=== PATIENT | female | born 1965 | race Caucasian/White ===

== ENCOUNTER 2020-06-13 17:14 | Emergency (ER) | payer OTHER, SELFPAY ==
--- NOTE | 2020-06-13 | XR_ITS ---
EXAMINATION: XR SHOULDER, RIGHT CLINICAL INFORMATION: Pain after fall COMPARISON: None TECHNIQUE: Three views of the right shoulder. FINDINGS: There is a comminuted right humeral head fracture. There is an avulsed fracture fragment including the greater tuberosity as well as a transverse component across the neck of the humerus. No dislocation seen. Mild acromioclavicular joint arthrosis. There is inferior spurring of the glenoid. Visualized right lung and ribs are normal. XR/XR shoulder RT min 2V IMPRESSION: Acute comminuted right humeral head fracture.
[2020-06-13 17:20] VITALS: BP 121/76; PULSE 87; RESP 18; TEMP 36.7; O2SAT 96; BMI 25.3
--- NOTE | 2020-06-13 17:39 | ED_ITS ---
HPI - Extremity Problem General Chief complaint: Extremity Injury, Upper Stated complaint: shoulder injury Time Seen by Provider: 06/13/20 17:31 Source: patient Mode of arrival: ambulatory Limitations: no limitations History of Present Illness HPI Narrative: Patient comes to the emergency room complaining of right shoulder pain. Patient states prior to arrival, patient was outside her home cleaning, patient slipped on ice, landed on her right shoulder. Patient denies hitting her head, no loss of consciousness. Patient denies pain in her elbow or wrist. Patient denies being on blood thinners. Related Data Previous Rx's Medication Instructions Recorded oxycodone-acetaminophen [Percocet] 1 tab PO Q4H PRN #14 tab 06/13/20 oxycodone-acetaminophen [Percocet] 1 tab PO Q6H PRN #14 tab 06/13/20 oxycodone-acetaminophen [Percocet] 1 tab PO Q6H PRN #14 tab 06/13/20 oxycodone-acetaminophen [Percocet] 1 tab PO Q6H PRN #14 tab 06/13/20 Allergies Allergy/AdvReac Type Severity Reaction Status Date / Time penicillin V Allergy Unknown hives Verified 11/06/19 00:00 Review of Systems Review of Systems: Constitutional : No Weight loss, No Fever, No Chills, No Night Sweats, No Fatigue, No Malaise ENT/Mouth : No Hearing loss, No Ear Pain, No Nasal Congestion, No Sinus Pain, No Hoarseness, No sore throat, No Rhinorrhea, No Swallowing Difficulty Eyes: No Eye Pain, No Swelling, No Redness, No Foreign Body, No Discharge, No Vision Changes Cardiovascular : No Chest Pain, No SOB, No Dyspnea on Exertion, No Orthopnea, No Edema, No Palpitations Respiratory : No Cough, No Sputum, No Wheezing, No Smoke Exposure, No Dyspnea Gastrointestinal : No Nausea, No Vomiting, No Diarrhea, No Constipation, No abdominal Pain, No Hematochezia, No Melena Genitourinary : no irregular bleeding, No Dysuria, No Urinary Frequency, No Hematuria, No Urinary Incontinence, No Urgency, No Flank Pain, No Urinary Flow Changes, No Hesitancy Musculoskeletal : Complaining of right shoulder pain, No Joint Swelling Skin : No Skin Lesions, No rash Neuro : No Weakness, No Numbness, No Paresthesias, No Loss of Consciousness, No Dizziness, No Headache Psych : No Anxiety/Panic, No Depression, No SI/HI/AH/VH, No Social Issues, Heme/Lymph: No Bruising, No Bleeding,No Lymphadenopathy Endocrine : No Polyuria, No Polydipsia, No Temperature Intolerance [facility] Past Medical History Medical History (Updated 06/13/20 @ 18:24 by Vi Andino MD) High cholesterol HTN (hypertension) Social History Social History Smoked in Last 30 Days: No Use of substances other than those prescribed or required for medical reasons: No Advance Directives: No Advance Directives Information Provided: Yes Physical Exam Vital Signs: Vital Signs: Last Vital Signs Temp 98.0 F 06/13/20 17: Pulse 87 06/13/20 17:20 Resp 18 06/13/20 17:20 BP 121/76 06/13/20 17:20 Pulse Ox 96 06/13/20 17:20 Body Mass Index 25.3 Appearance: Alert. Oriented X3. No acute distress. Eyes: Pupils equal, round and reactive to light. ENT: Pharynx normal. Neck: Normal inspection. Neck supple. No lymph nodes noted. No crepitus CVS: Normal heart rate and rhythm. Pulses normal. Normal S1 and S2 Respiratory: No respiratory distress. Breath sounds normal. No Wheezing. No rales Abdomen: Soft and nontender. No rigidity. No distention. good BS x4 Skin: Skin warm and dry. Normal skin color. Normal skin turgor. Extremities: No Lacerations. No Rash. Pain to palpation on the anterior aspect of the right shoulder. Patient unwilling to try moving her arm due to pain. Patient has her arm in a sling. No gross deformity, no lacerations, no erythema. Patient able to flex and extend elbow and wrist, no clavicular pain, no rib pain. Sensation throughout the arm is intact, patient is able to work on a close her hand with no difficulty Neuro: Oriented X 3. No motor deficit. No sensory deficit. Moving all extermi ties. No slurred speech. Course Course Course Narrative: I discussed the patient's x-rays with Dr. Reyes, at this time will provide the patient with pain medication and a sling. The patient has been instructed to follow up with Dr. Reyes on Monday. Of note, there are multiple Percocet prescriptions in the system, patient kept changing her mind to which pharmacy she wanted her medication to be sent to. After changing her mind multiple times, I called both pharmacies, to cancel the prescription, prescription was printed for the patient and she will be taking it to the pharmacy of her choice MDM - Extremity (Nontraumatic) Imaging Data Shoulder x-ray: Radiologist's impression: There is a comminuted right humeral head fracture. There is an avulsed fracture fragment including the greater tuberosity as well as a transverse component across the neck of the humerus. No dislocation seen. Mild acromioclavicular joint arthrosis. There is inferior spurring of the glenoid. Visualized right lung and ribs are normal. XR/XR shoulder RT min 2V IMPRESSION: Acute comminuted right humeral head fracture. Discharge Plan Discharge Clinical Impression: Fracture of humeral head, closed Qualifiers: Encounter type: initial encounter Laterality: right Qualified Code(s): S42.291A - Other displaced fracture of upper end of right humerus, initial encounter for closed fracture Patient Disposition: Home, Self-Care Instructions: Arm Fracture in Adults (ED) Additional Instructions: On Monday, please call Dr. Reyes office to schedule an appointment. Please follow-up with your primary care physician tomorrow. If you have any worsening or new symptoms, please return to the emergency room or call 911 Prescriptions: New oxycodone-acetaminophen [Percocet] 5-325 mg tablet 1 tab PO Q4H PRN (Reason: pain) Qty: 14 RF: 0 oxycodone-acetaminophen [Percocet] 5-325 mg tablet 1 tab PO Q6H PRN (Reason: pain) Qty: 14 RF: 0 oxycodone-acetaminophen [Percocet] 5-325 mg tablet 1 tab PO Q6H PRN (Reason: pain) Qty: 14 RF: 0 oxycodone-acetaminophen [Percocet] 5-325 mg tablet 1 tab PO Q6H PRN (Reason: pain) Qty: 14 RF: 0 Interventions: ED Discharge Assessment Last Done: 06/13/20 18:58 Discharge Date/Time: 06/13/20 19:12
[2020-06-13] MEDS: Acetaminophen 325 MG TABLET 650 MG PO (17:45)
[2020-06-13] MEDS: Ketorolac Tromethamine 60 MG/2 ML VIAL IM (18:42)
== END 2020-06-13 19:12 | disposition home or self-care (01) ==
PROVIDERS: Emergency Provider Emergency Medicine; PCP Internal Medicine
DX: S42.291A Other displaced fracture of upper end of right humerus, initial encounter for closed fracture (principal); M25.511 Pain in right shoulder; I10 Essential (primary) hypertension; W00.0XXA Fall on same level due to ice and snow, initial encounter; Y93.H1 Activity, digging, shoveling and raking; Y92.009 Unspecified place in unspecified non-institutional (private) residence as the place of occurrence of the external cause; Y99.9 Unspecified external cause status; Z79.899 Other long term (current) drug therapy
CPT/HCPCS: 73030; 96372; 99284; J1885

== ENCOUNTER → 2020-06-15 12:40 | Outpatient (BNVA) | payer OTHER, SELFPAY | PROVIDERS: Visit Provider Physician Assistant | DX: S42.251A Displaced fracture of greater tuberosity of right humerus, initial encounter for closed fracture (principal) | CPT/HCPCS: 99202 ==

== ENCOUNTER 2020-06-22 08:50 | Outpatient (REF) | payer OTHER, SELFPAY | END 2020-06-22 08:51 | disposition home or self-care (01) | LOC: HO.HOSX 08:50 | PROVIDERS: Visit Provider Orthopaedic Surgery | DX: Z13.89 Encounter for screening for other disorder (principal) ==

== ENCOUNTER 2020-06-22 10:49 | Outpatient (REF) | payer OTHER, SELFPAY ==
--- NOTE | 2020-06-22 10:56 | XR_ITS ---
EXAMINATION: XR SHOULDER, RIGHT CLINICAL INFORMATION: Comminuted fracture right humeral head. Follow-up COMPARISON: Radiographs right shoulder 06/13/2020 TECHNIQUE: Right shoulder is imaged in 3 views. FINDINGS: Comminuted fracture right humeral head again seen with faint nondisplaced transverse component and comminuted fracture base greater tuberosity. There is less distraction of the greater tuberosity on current study. The acromioclavicular alignment is normal. There is no dislocation or destructive process. XR/XR shoulder RT min 2V IMPRESSION: Comminuted fracture again noted humeral head. There is improved alignment of the greater tuberosity component.
== END 2020-06-22 10:50 | disposition home or self-care (01) ==
LOC: HO.XRAY 10:49
PROVIDERS: PCP Internal Medicine; Visit Provider Orthopaedic Surgery
DX: M25.511 Pain in right shoulder (principal)
CPT/HCPCS: 73030; 99212

== ENCOUNTER 2020-07-09 08:54 | Outpatient (REF) | payer OTHER, SELFPAY | END 2020-07-09 08:55 | disposition home or self-care (01) | LOC: HO.HOSX 08:54 | PROVIDERS: Visit Provider Orthopaedic Surgery | DX: Z13.89 Encounter for screening for other disorder (principal) ==

== ENCOUNTER 2020-07-16 09:25 | Outpatient (REF) | payer OTHER, SELFPAY | END 2020-07-16 09:26 | disposition home or self-care (01) | LOC: HO.HOSX 09:25 | PROVIDERS: Visit Provider Orthopaedic Surgery | DX: Z13.89 Encounter for screening for other disorder (principal) ==

== ENCOUNTER 2020-08-13 08:02 | Outpatient (REF) | payer OTHER, SELFPAY ==
--- NOTE | ~2020-08-13 | XR_ITS ---
EXAMINATION: XR SHOULDER, RIGHT CLINICAL INFORMATION: Right humeral head fracture, follow-up. COMPARISON: 06/22/2020 and 06/13/2020 right shoulder radiographs TECHNIQUE: Three views of the right shoulder. FINDINGS: Again seen is deformity in the right greater tuberosity. There has been interval superomedial displacement of the lateral fragment now positioned in the humeral acromial interval. The right humeral surgical neck fracture shows evidence for interval healing with decreased fracture line lucency and increased sclerosis. Mild right acromioclavicular degenerative joint changes are seen. The right glenohumeral joint is intact. The soft tissues are unremarkable. XR/XR shoulder RT min 2V IMPRESSION: Interval superomedial displacement of a fragment of the greater tuberosity now positioned in the humeral acromial interval. This is new since the previous study, but is of indeterminate age. Acute injury cannot be excluded. Other previously seen fracture fragments show evidence for interval healing.
== END 2020-08-13 08:03 | disposition home or self-care (01) ==
LOC: HO.HOSX 08:02
PROVIDERS: Visit Provider Orthopaedic Surgery
DX: S42.251D Displaced fracture of greater tuberosity of right humerus, subsequent encounter for fracture with routine healing (principal)
CPT/HCPCS: 73030; 99212

== ENCOUNTER → 2020-09-14 10:02 | Outpatient (BNVA) | payer OTHER, SELFPAY | PROVIDERS: PCP Internal Medicine; Referring Provider Internal Medicine; Visit Provider Internal Medicine Endocrinology, Diabetes & Metabolism | DX: Z13.89 Encounter for screening for other disorder (principal) | CPT/HCPCS: Q3014 ==

== ENCOUNTER 2020-10-15 10:08 | Outpatient (REF) | payer OTHER, SELFPAY ==
--- NOTE | 2020-10-15 10:49 | PM.OP ---
Brief Operative Note Date of Service: 10/15/20 Pre-op diagnosis: NONTOXIC MULTINODULAR GOITER Post-op diagnosis: same Procedure: This procedure was explained to the patient. Alternatives, risks and benefits were discussed. Written consent was obtained. After sterile preparation of the skin, fine-needle aspiration biopsy of Left lower pole thyroid nodule size 2.7 x 2.3 x 2.3 cm was performed under direct ultrasound guidance to confirm accurate needle placement. Three passes were performed with 27 gauge needles. Sample was submitted to cytology, initial cytology reading was adequate. Two passes were dedicated for [employer] genomic sequencing english and reading instructor test. A second fine-needle aspiration biopsy of Right mid pole thyroid nodule size 1.6 x 0.9 x 1.5 cm was performed under direct ultrasound guidance to confirm accurate needle placement. Four passes were performed with 27 gauge needles. Sample was submitted to cytology, initial cytology reading was adequate. Two passes were dedicated for [employer] genomic sequencing english and reading instructor test. Patient tolerated procedure well. Aftercare instructions were provided. Impression: uncomplicated fine-needle aspiration biopsy of left lower pole in right mid pole thyroid nodules under direct ultrasound guidance. Surgeon: Piyush Lawrence MD Anesthesia: local (Lidocaine 1 %, 2 ml) Estimated blood loss (mL): 0 Condition: stable Disposition: same day
[2020-10-15] MEDS: Lidocaine HCl 1 % 20 ML VIAL 5 ML SUBCUT (11:15)
== END 2020-10-15 10:09 | disposition home or self-care (01) ==
LOC: HO.US 10:08
PROVIDERS: Visit Provider Internal Medicine Endocrinology, Diabetes & Metabolism
DX: E04.2 Nontoxic multinodular goiter (principal)
CPT/HCPCS: 10005; 10006; 88172; 88173; 88305

== ENCOUNTER → 2020-10-28 08:13 | Outpatient (BNVA) | payer OTHER, SELFPAY | PROVIDERS: PCP Internal Medicine; Visit Provider Internal Medicine Endocrinology, Diabetes & Metabolism | CPT/HCPCS: Q3014 ==

== ENCOUNTER 2020-12-03 15:50 | Emergency (ER) | payer OTHER, SELFPAY ==
[2020-12-03 16:46] VITALS: BP 120/76; PULSE 93; RESP 18; TEMP 36.6; O2SAT 97; BMI 25.7
[2020-12-03 19:09] VITALS: BP 122/82; PULSE 84; RESP 18; O2SAT 94
[2020-12-03 19:24] LABS: MANUAL DIFF FLAG NO
[2020-12-03 19:31] LABS: Basophils Percent Auto 0.4 % (0-2); Eosinophils Percent Auto 0.1 % (0-4); Hematocrit 45.2 % (37-47); Hemoglobin 15.3 g/dl (12.0-16.0); Imm Gran Abs Auto 0.02 X10*3/uL (0.00-0.03); Imm Gran Pct Auto 0.2 % (0.0-0.4); Lymphocytes Absolute Auto 1.9 X10*3/uL (1.2-4.9); Mean Corpuscular HGB Conc 33.8 g/dl (31.0-35.0); Mean Corpuscular Hemoglobin 31.5 pg (27.0-33.0); Mean Platelet Volume 10.3 fL (9.4-12.3); Monocytes Absolute Auto 1.1 X10*3/uL (0.1-1.2); Monocytes Percent Auto 13.1 % (2-11); Neutrophils Absolute Auto 5.2 X10*3/uL (2.0-8.3); Neutrophils Percent Auto 63.2 % (45-73); Platelet Count 176 X10*3/uL (160-400); Red Blood Count 4.86 X10*6/uL (4.20-5.50); Red Cell Distribution Width 13.2 % (11.0-16.0); White Blood Count 8.3 X10*3/uL (4.8-10.8)
[2020-12-03 19:40] LABS: Ammonia 34 umol/L (13-55)
[2020-12-03 20:02] LABS: Alanine Aminotransferase 56 U/L (0-31); Albumin Level 4.3 g/dL (3.5-5.0); Alkaline Phosphatase 152 U/L (39-117); Anion Gap 17 (12-20); Aspartate Amino Transferase 150 U/L (5-31); Bilirubin Direct 0.6 mg/dL (0.0-0.5); Bilirubin Total 0.9 mg/dL (0.0-1.0); Calcium 9.9 mg/dL (8.4-10.2); Carbon Dioxide 29 mmol/L (22-29); Chloride 94 mmol/L (96-108); Creatinine Clr Calc Pharmacy 61.9; Estimated Glomerular Filt Rate > 60; Glucose Random 82 mg/dL (60-115); Potassium 4.4 mmol/L (3.3-5.1); Sodium 136 mmol/L (135-145); Total Protein 7.7 g/dL (6.5-8.0)
[2020-12-03 20:12] LABS: Blood Urea Nitrogen 14 mg/dL (9-16); Lipase 117 U/L (8-78)
--- NOTE | 2020-12-04 01:57 | ED.ALCOHOL ---
HPI - Alcohol General Chief Complaint: ETOH/Substance Use Stated Complaint: Alcohol poisoning Time Seen by Provider: 12/04/20 01:50 History of Present Illness HPI narrative: Patient is a 55-year-old female with a long history of alcohol and narcotic abuse. Baseline is on methadone. Patient due to a family illness has been using more alcohol than usual. Also started back using heroin after she was cut back on the methadone. Patient admits to using heroin today. Patient denies any chest pain. Feels very weak. Feels she wants detox. Patient is from home. Patient already spoken with substance abuse counselor while in the waiting room. She denies any chest pain palpitation. No coughing or congestion or upper respiratory symptoms. No dizziness. Positive decrease in hydration. Related Data Home Medications Medication Instructions Recorded Confirmed amlodipine 5 mg tablet 5 mg PO DAILY 09/14/20 10/28/20 atenolol 25 mg tablet 25 mg PO DAILY 09/14/20 10/28/20 cholecalciferol (vitamin D3) 50 50 mcg PO DAILY 09/14/20 10/28/20 mcg (2,000 unit) capsule clonazepam 1 mg tablet 1 mg PO DAILY tab 09/14/20 10/28/20 methocarbamol 750 mg tablet 750 mg PO TID 09/14/20 10/28/20 simvastatin 40 mg tablet 40 mg PO BEDTIME 09/14/20 10/28/20 Previous Rx's Medication Instructions Recorded ondansetron 4 mg PO TID PRN 5 Days #10 tab 12/04/20 Allergies Allergy/AdvReac Type Severity Reaction Status Date / Time penicillin V Allergy Unknown hives Verified 06/22/20 11:18 Review of Systems Review of Systems: Constitutional: No Weight loss, No Fever, No Chills, No Night Sweats, No Fatigue, No Malaise ENT/Mouth: No Hearing loss, No Ear Pain, No Nasal Congestion, No Sinus Pain, No Hoarseness, No sore throat, No Rhinorrhea, No Swallowing Difficulty Eyes: No Eye Pain, No Swelling, No Redness, No Foreign Body, No Discharge, No Vision Changes Cardiovascular: No Chest Pain, No SOB, No Dyspnea on Exertion, No Orthopnea, No Edema, No Palpitations Respiratory: No Cough, No Sputum, No Wheezing, No Smoke Exposure, No Dyspnea Gastrointestinal: No Nausea, No Vomiting, No Diarrhea, No Constipation, No abdominal Pain, No Hematochezia, No Melena Genitourinary: no irregular bleeding, No Dysuria, No Urinary Frequency, No Hematuria, No Urinary Incontinence, No Urgency, No Flank Pain, No Urinary Flow Changes, No Hesitancy Musculoskeletal: No joint pain, No Myalgias, No Joint Swelling Skin: No Skin Lesions, No rash Neuro: No Weakness, No Numbness, No Paresthesias, No Loss of Consciousness, No Dizziness, No Headache Psych: No Anxiety/Panic, No Depression, No SI/HI/AH/VH, No Social Issues, Heme/Lymph: No Bruising, No Bleeding,No Lymphadenopathy Endocrine: No Polyuria, No Polydipsia, No Temperature Intolerance [facility] Past Medical History Medical History High cholesterol History of ovarian cyst HTN (hypertension) Non-toxic multinodular goiter Social History Social History Alcohol intake: current Alcohol intake frequency: 3 or more drinks per day Alcohol type: hard liquor Patient Tobacco Use Status: Former Tobacco user Use of substances other than those prescribed or required for medical reasons: Yes Substance Use Type: Heroin Substance Use Frequency: Chronic Longstanding Last Used Substance: Just Prior to Admission Any prior treatment program specific to substance use: Yes Advance Directives: No Advance Directives Information Provided: No Patient : No Current occupational status: unemployed Current occupation: rt handed Physical Exam Vital Signs: Vital Signs: Last Vital Signs Temp 98 F 12/03/20 16:46 Pulse 84 12/03/20 19:09 Resp 18 12/03/20 19:09 BP 122/82 12/03/20 19:09 Pulse Ox 94 12/03/20 19:09 Body Mass Index 25.7 Appearance: Alert. Oriented X3. No acute distress. Eyes: Pupils equal, round and reactive to light. ENT: Pharynx normal. Neck: Normal inspection. Neck supple. No lymph nodes noted. No crepitus CVS: Normal heart rate and rhythm. Pulses normal. Normal S1 and S2 Respiratory: No respiratory distress. Breath sounds normal. No Wheezing. No rales Abdomen: Soft and nontender. No rigidity. No distention. good BS x4 Skin: Skin warm and dry. Normal skin color. Normal skin turgor. Extremities: No lower extremity edema. Neurovascular intact to all extremities. No Lacerations. No Rash Neuro: Oriented X 3. No motor deficit. No sensory deficit. Moving all extermities. No slurred speech MDM - Alcohol MDM Narrative Medical decision making narrative: Patient's EKG is consistent with long-term substance abuse. Patient's well-appearing otherwise. Tolerated p.o. in the emergency department. Spoken with substance abuse counseling. Patient appeared to want detox. Will follow through with plan. Will give patient Zofran for nausea. Will have patient closely follow up on an outpatient basis. In stable condition. Ammonia level is normal. There is no evidence for hepatic encephalopathy. Patient is completely awake alert answers questions appropriately. In stable condition with discharge home. Lab Data Attestation: I reviewed the patient's lab results. Result diagrams: 12/03/20 19:17 12/03/20 19:17 Labs: Lab Results 12/03/20 12/03/20 12/03/20 Range/Units 19:17 19:17 19:17 WBC 8.3 (4.8-10.8) X10*3/uL RBC 4.86 (4.20-5.50) X10*6/uL Hgb 15.3 (12.0-16.0) g/dl Hct 45.2 (37-47) % MCV 93.0 (80-98) fL MCH 31.5 (27.0-33.0) pg MCHC 33.8 (31.0-35.0) g/dl RDW 13.2 (11.0-16.0) % Plt Count 176 (160-400) X10*3/uL MPV 10.3 (9.4-12.3) fL Immature Gran % (Auto) 0.2 (0.0-0.4) % Neut % (Auto) 63.2 (45-73) % Lymph % (Auto) 23.0 (20-40) % [place] % (Auto) 13.1 H (2-11) % Eos % (Auto) 0.1 (0-4) % Baso % (Auto) 0.4 (0-2) % Lymph # (Auto) 1.9 (1.2-4.9) X10*3/uL [place] # (Auto) 1.1 (0.1-1.2) X10*3/uL Eos # (Auto) 0.0 (0.0-0.4) X10*3/uL Baso # (Auto) 0.0 (0.0-0.2) X10*3/uL Abs Immat Gran (auto) 0.02 (0.00-0.03) X10*3/uL Absolute Neuts (auto) 5.2 (2.0-8.3) X10*3/uL Absolute Nucleated RBC 0.000 (0.0-0.012) X10*3/uL Nucleated RBC % (auto) 0.0 (0.0-0.2) /100WBC Sodium 136 (135-145) mmol/L Potassium 4.4 (3.3-5.1) mmol/L Chloride 94 L (96-108) mmol/L Carbon Dioxide 29 (22-29) mmol/L Anion Gap 17 (12-20) BUN 14 (9-16) mg/dL Creatinine 0.95 (0.5-1.4) mg/dL Estim Creat Clear Calc 61.9 Estimated GFR > 60 Random Glucose 82 (60-115) mg/dL Calcium 9.9 (8.4-10.2) mg/dL Total Bilirubin 0.9 (0.0-1.0) mg/dL Direct Bilirubin 0.6 H (0.0-0.5) mg/dL AST 150 H (5-31) U/L ALT 56 H (0-31) U/L Alkaline Phosphatase 152 H (39-117) U/L Ammonia 34 (13-55) umol/L Total Protein 7.7 (6.5-8.0) g/dL Albumin 4.3 (3.5-5.0) g/dL Lipase 117 H (8-78) U/L Discharge Plan Discharge Clinical Impression: Alcoholic intoxication, Heroin abuse Patient Disposition: Home, Self-Care Instructions: Alcohol Intoxication (ED), Narcotic Use Disorder (ED) Prescriptions: New ondansetron 4 mg tablet,disintegrating 4 mg PO TID PRN (Reason: nausea and vomiting) 5 Days Qty: 10 RF: 0 No Action atenolol 25 mg tablet 25 mg PO DAILY RF: 0 cholecalciferol (vitamin D3) 50 mcg (2,000 unit) capsule 50 mcg PO DAILY RF: 0 amlodipine 5 mg tablet 5 mg PO DAILY RF: 0 simvastatin 40 mg tablet 40 mg PO BEDTIME RF: 0 clonazepam 1 mg tablet 1 mg PO DAILY RF: 0 methocarbamol 750 mg tablet 750 mg PO TID RF: 0 Referrals: Physician,Unknown [Primary Care Provider] - 2 days (Please go to detox as soon as possible. Zofran for nausea. Please stop drinking. Please stop using heroin. Both of these things can kill you.)
[2020-12-04 02:33] VITALS: BP 114/76; PULSE 81; RESP 16; TEMP 36.8; O2SAT 97
[2020-12-04 02:53] LABS: Ethanol 197 mg/dL
== END 2020-12-04 02:37 | disposition home or self-care (01) ==
PROVIDERS: Emergency Provider Emergency Medicine Emergency Medical Services
DX: F10.129 Alcohol abuse with intoxication, unspecified (principal); Y90.9 Presence of alcohol in blood, level not specified; F11.10 Opioid abuse, uncomplicated
CPT/HCPCS: 36415; 80053; 80076; 82077; 82140; 82248; 83690; 85025; 96360; 99283; 99284

== ENCOUNTER 2020-12-31 10:27 | Outpatient (REF) | payer OTHER, SELFPAY ==
--- NOTE | ~2020-12-31 | MM_ITS ---
EXAMINATION: MM SCREENING DIGITAL BREAST TOMOSYNTHESIS, BILATERAL CLINICAL INFORMATION: Screening. Asymptomatic. The lifetime risk of breast cancer based on the Tyrer-Cuzick Model is 9.1%. COMPARISON: Mammography: July 14, 2016 and studies dating back to May 13, 2010 TECHNIQUE: Digital breast tomosynthesis is performed in both the craniocaudal and mediolateral oblique views along with computer-aided detection (CAD). Synthesized 2D images are generated from the tomosynthesis. FINDINGS: The breasts are extremely dense, which lowers the sensitivity of mammography (ACR BI-RADS breast composition Category d). There are no significant masses, abnormal calcifications, or other abnormalities. MM/MM tomosynthesis screening BI IMPRESSION: There are no significant changes from prior study. ASSESSMENT: BI-RADS 1: Negative RECOMMENDATION: Routine annual mammography screening. This patient's information was entered into a reminder system with a target due date for their next mammogram.
== END 2020-12-31 10:28 | disposition home or self-care (01) ==
LOC: HO.MAMMO 10:27
PROVIDERS: Visit Provider Internal Medicine
DX: Z12.31 Encounter for screening mammogram for malignant neoplasm of breast (principal)
CPT/HCPCS: 77063; 77067

== ENCOUNTER 2021-01-11 11:56 | Outpatient (REF) | payer OTHER, SELFPAY ==
--- NOTE | ~2021-01-11 | XR_ITS ---
EXAMINATION: XR SHOULDER, RIGHT CLINICAL INFORMATION: Pain COMPARISON: Previous x-ray most recent July 2020 TECHNIQUE: Three views of the right shoulder. FINDINGS: There is an old healed fracture of the right greater tuberosity and humeral neck. No acute fracture or dislocation is seen. There is arthritis at the clavicular glenohumeral joints. Soft tissues are unremarkable. XR/XR shoulder RT min 2V IMPRESSION: Old healed fracture of the right tuberosity and humeral neck. Mild arthritis.
== END 2021-01-11 11:57 | disposition home or self-care (01) ==
LOC: HO.HOSX 11:56
PROVIDERS: PCP Internal Medicine; Visit Provider Orthopaedic Surgery
DX: S42.251D Displaced fracture of greater tuberosity of right humerus, subsequent encounter for fracture with routine healing (principal); M67.911 Unspecified disorder of synovium and tendon, right shoulder; F11.90 Opioid use, unspecified, uncomplicated; Z72.89 Other problems related to lifestyle; X58.XXXD Exposure to other specified factors, subsequent encounter
CPT/HCPCS: 73030; 99212

== ENCOUNTER 2021-10-20 12:54 | Outpatient (REF) | payer OTHER, SELFPAY ==
--- NOTE | ~2021-10-20 | MR_ITS ---
EXAMINATION: MR SHOULDER WITHOUT CONTRAST, RIGHT CLINICAL INFORMATION: Right shoulder pain. COMPARISON: Radiographs 01/11/2021. TECHNIQUE: MRI of the right shoulder without contrast was performed on a high-field scanner. FINDINGS: ROTATOR CUFF: The supraspinatus tendon is attenuated compatible with chronic partial tearing. No measurable defect. The infraspinatus tendon inserts onto a slightly retracted and healed fracture fragment of the greater tuberosity. Subscapularis insertional tendinosis. Mild infraspinatus muscle atrophy. BICEPS: Normal. CORACOACROMIAL ARCH: The undersurface of the acromion is curved with mild subacromial spurring anteriorly. Moderate acromioclavicular osteoarthritis. LABRUM/CAPSULE: The posterior labrum is likely chronically degenerated and torn. GLENOHUMERAL JOINT/MARROW: Remote, healed fracture of the humeral head. There is overriding of the posterior aspect of the greater tuberosity with the posterior humeral head, a portion of which is unfused, onto which the infraspinatus tendon inserts. No significant joint effusion. MR/MR shoulder RT wo con IMPRESSION: Remote, healed fracture of the humeral head with residual overriding of the posterior greater tuberosity, onto which the infraspinatus tendon inserts. The supraspinatus tendon is attenuated, without a measurable defect. Moderate acromioclavicular osteoarthritis. Small anterior subacromial spur. Mild glenohumeral osteoarthritis with probable chronic degenerative tearing and attenuation of the posterior labrum.
== END 2021-10-20 12:55 | disposition home or self-care (01) ==
LOC: HO.MRI 12:54
PROVIDERS: Visit Provider Orthopaedic Surgery
DX: M67.911 Unspecified disorder of synovium and tendon, right shoulder (principal)
CPT/HCPCS: 73221

== ENCOUNTER → 2021-12-20 12:41 | Outpatient (BNVA) | payer OTHER, SELFPAY | PROVIDERS: PCP Internal Medicine; Visit Provider Orthopaedic Surgery | DX: S42.251D Displaced fracture of greater tuberosity of right humerus, subsequent encounter for fracture with routine healing (principal) | CPT/HCPCS: 99212 ==

== ENCOUNTER 2022-01-12 16:10 | Outpatient (REF) | payer OTHER, SELFPAY ==
--- NOTE | ~2022-01-12 | US_ITS ---
EXAMINATION: US THYROID CLINICAL INFORMATION: Nontoxic multinodular goiter. COMPARISON: US thyroid 02/12/2020 and 01/19/2017. US-guided thyroid biopsy 10/15/2020. TECHNIQUE: Linear transducer grayscale and color Doppler examination with attention to the region of the thyroid. FINDINGS: SIZE: Measurements of the thyroid lobes and nodules are given in sagittal, anteroposterior and transverse dimensions respectively. Right Thyroid Lobe: 5.7 x 1.7 x 1.8 cm, volume 9.1 mL. Previously 5.2 x 1.7 x 2.0 cm, volume 9.2 mL. Parenchyma: The gland echotexture is heterogeneous. Thyroid vascularity is increased. Left Thyroid Lobe: 5.5 x 2.2 x 2.4 cm, volume 15.2 mL. Previously 5.0 x 1.8 x 2.7 cm, volume 12.7 mL. Parenchyma: The gland echotexture is heterogeneous. Thyroid vascularity is increased. Isthmus: 0.2 cm in maximum AP dimension. Previously 0.2 cm. Estimated total number of nodules greater than or equal to 1 cm: 5. [employer] Fl[employer] Attendant nodules are described as follows: 1. Location: Right mid. Size: 2.2 x 1.1 x 1.8 cm, volume 2.3 mL. Previously: 1.6 x 0.9 x 1.5 cm, volume 1.1 mL. Nodule characteristics: Composition: Solid/almost completely solid (2). Echogenicity: Cannot be determined (1). Shape: Not taller than wide (0). Margins: Smooth (0). Echogenic Foci: None (0). ACR TI-RADS total points: 3 ACR TI-RADS category: 3 Significant change in size (>/= 20% in 2 dimensions and minimal increase of 2 mm or 50% or greater increase in volume): Yes Change in features: No Change in ACR TI-RADS risk category: No 2. Location: Right mid. Size: 1.2 x 0.6 x 1.1 cm, volume 0.4 mL. Previously: 1.0 x 0.5 x 0.9 cm, volume 0.2 mL. Nodule characteristics: Composition: Solid/almost completely solid (2). Echogenicity: Hypoechoic (2). Shape: Not taller than wide (0). Margins: Smooth (0). Echogenic Foci: None (0). ACR TI-RADS total points: 4 ACR TI-RADS category: 4 Significant change in size (>/= 20% in 2 dimensions and minimal increase of 2 mm or 50% or greater increase in volume): Yes Change in features: No Change in ACR TI-RADS risk category: No 3. Location: Right inferior. Size: 1.5 x 1.0 x 1.1 cm, volume 0.9 mL. Previously: 1.2 x 1.0 x 1.2 cm, volume 0.8 mL. Nodule characteristics: Composition: Solid (2). Echogenicity: Hypoechoic (2). Shape: Not taller than wide (0). Margins: Ill-defined (0). Echogenic Foci: None (0). ACR TI-RADS total points: 4 ACR TI-RADS category: 4 Significant change in size (>/= 20% in 2 dimensions and minimal increase of 2 mm or 50% or greater increase in volume): No Change in features: No Change in ACR TI-RADS risk category: No 4. Location: Left medial. Size: 1.7 x 1.1 x 1.4 cm, volume 1.3 mL. Previously: 1.5 x 1.1 x 1.3 cm, volume 1.1 mL. Nodule characteristics: Composition: Solid (2). Echogenicity: Isoechoic (1). Shape: Not taller than wide (0). Margins: Smooth (0). Echogenic Foci: None (0). ACR TI-RADS total points: 3 ACR TI-RADS category: 3 Significant change in size (>/= 20% in 2 dimensions and minimal increase of 2 mm or 50% or greater increase in volume): No Change in features: No Change in ACR TI-RADS risk category: No 5. Location: Left mid. Size: 1.4 x 0.8 x 1.5 cm, volume 0.9 mL. Previously: Not documented on the previous study. Nodule characteristics: Composition: Mixed cystic and solid (1). Echogenicity: Hypoechoic (2). Shape: Not taller than wide (0). Margins: Ill-defined (0). Echogenic Foci: None (0). ACR TI-RADS total points: 3 ACR TI-RADS category: 3 NODES: No lymphadenopathy is seen in the tissue surrounding the thyroid gland. US/US thyroid IMPRESSION: 1. A 1.5 cm in maximal diameter right thyroid lower pole nodule meets ACR biopsy criteria and is amenable to ultrasound-guided biopsy, if clinically indicated and not already performed. Given the interim stability of this nodule, however, further ultrasound surveillance without biopsy at this time is a further reasonable management option. 2. There is an asymmetric goiter, left lobe greater than right. 3. There is increased thyroid vascularity, which can be associated with thyroiditis. ACR TI-RADS RECOMMENDATION REFERENCE: Ultrasound-guided fine-needle aspiration, followup ultrasound, no further follow up. * TR1 (0 point) and TR 2 (2 points): No FNA or follow up * TR3 (3 points): FNA if more than or equal to 2.5 cm in maximum dimension, followup ultrasound in 1, 3 and 5 years if 1.5 to 2.4 cm in maximum dimension. * TR4 (4-6 points): FNA if more than or equal to 1.5 cm in maximum dimension, followup ultrasound in 1, 2, 3 and 5 years if 1 to 1.4 cm in maximum dimension. * TR5 (more than or equal to 7 points): FNA if more than or equal to 1 cm in maximum dimension, followup ultrasound every year for 5 years if 0.5 to 0.9 cm in maximum dimension. * TR3, TR4 or TR5 nodules that are below the size threshold for follow up receive no follow up.
== END 2022-01-12 16:11 | disposition home or self-care (01) ==
LOC: HO.US 16:10
PROVIDERS: Visit Provider Internal Medicine Endocrinology, Diabetes & Metabolism
DX: E04.2 Nontoxic multinodular goiter (principal)
CPT/HCPCS: 76536

== ENCOUNTER 2022-04-16 12:07 | Emergency (ER) | payer OTHER, SELFPAY ==
--- NOTE | ~2022-04-16 | XR_ITS ---
EXAMINATION: RIGHT HAND, FOREARM, AND ELBOW. CLINICAL INFORMATION: Fall with pain COMPARISON: None TECHNIQUE: Three-view right elbow, AP and lateral right forearm, and 4 view right wrist. FINDINGS: Right elbow: There is no evidence of acute fracture or dislocation of the right elbow. No right elbow effusion is seen. There is medial and lateral calcific epicondylitis present. Joint spaces are maintained. Right wrist and forearm: There is a comminuted intra-articular fracture of the distal right radius. There appears to be neutral angulation of the radiocarpal joint. There is also some dorsal displacement of fracture fragments by up to 1.2 cm. There is medial displacement of a fracture fragment by approximately 7 mm. There is acquired positive ulnar variance. There is degenerative change of the first carpal metacarpal joint. There is associated soft tissue swelling. XR/XR hand wrist RT IMPRESSION: No acute elbow fracture or effusion identified. Comminuted intra-articular fracture with displaced fragments distal right radius as described.
--- NOTE | ~2022-04-16 | XR_ITS ---
EXAMINATION: RIGHT HAND, FOREARM, AND ELBOW. CLINICAL INFORMATION: Fall with pain COMPARISON: None TECHNIQUE: Three-view right elbow, AP and lateral right forearm, and 4 view right wrist. FINDINGS: Right elbow: There is no evidence of acute fracture or dislocation of the right elbow. No right elbow effusion is seen. There is medial and lateral calcific epicondylitis present. Joint spaces are maintained. Right wrist and forearm: There is a comminuted intra-articular fracture of the distal right radius. There appears to be neutral angulation of the radiocarpal joint. There is also some dorsal displacement of fracture fragments by up to 1.2 cm. There is medial displacement of a fracture fragment by approximately 7 mm. There is acquired positive ulnar variance. There is degenerative change of the first carpal metacarpal joint. There is associated soft tissue swelling. XR/XR elbow RT min 3V IMPRESSION: No acute elbow fracture or effusion identified. Comminuted intra-articular fracture with displaced fragments distal right radius as described.
--- NOTE | ~2022-04-16 | XR_ITS ---
EXAMINATION: XR WRIST, RIGHT CLINICAL INFORMATION: Status post reduction COMPARISON: Earlier on same day TECHNIQUE: PA, lateral, and oblique views of the right wrist. FINDINGS: There is a comminuted intra-articular fracture with some displaced fracture lines about the right distal radius. There is neutral angulation of the radiocarpal joint involving the major fracture fragments. No dislocation is seen. There is acquired positive ulnar variance. Appearance is similar to previous reduction alignment. There is degenerative change of the first carpal metacarpal joint with joint space narrowing and sclerosis. XR/XR wrist RT 2V IMPRESSION: Comminuted intra-articular fracture distal right radius with neutral angulation of the radiocarpal joint. No significant change in alignment post reduction of intra-articular comminuted and mildly displaced fracture of the distal right radius with what appears to be neutral angulation of the radiocarpal joint.
--- NOTE | ~2022-04-16 | CT_ITS ---
EXAMINATION: CT HEAD WITHOUT CONTRAST CLINICAL INFORMATION: Pain status post fall. COMPARISON: 11/24/[address] scan. TECHNIQUE: Contiguous axial imaging was performed from the skull base to vertex without intravenous administration of contrast. Coronal and sagittal reformatted images were obtained. This CT examination was performed using dose optimization techniques as appropriate, variously including the following: *Automated exposure control *Adjustment of mA and/or kV according to patient size (this includes techniques or standardized protocols for targeted exams where dose is matched to indication/reason for exam; i.e. extremities or head) *Use of iterative reconstruction technique DLP: 796 mGy-cm FINDINGS: The cortical sulci are normal. The lateral ventricles are symmetrical. The third and fourth ventricles are in their normal midline position. The basilar and prepontine cisterns are unremarkable. There is no acute intra or extracerebral abnormality. There is no mass effect or midline shift. Sections through the bony calvarium are unremarkable. The paranasal sinuses are clear. The bony orbits and orbital contents are unremarkable. CT/CT head/brain wo IV con IMPRESSION: No acute intracranial pathology.
--- NOTE | ~2022-04-16 | XR_ITS ---
EXAMINATION: RIGHT HAND, FOREARM, AND ELBOW. CLINICAL INFORMATION: Fall with pain COMPARISON: None TECHNIQUE: Three-view right elbow, AP and lateral right forearm, and 4 view right wrist. FINDINGS: Right elbow: There is no evidence of acute fracture or dislocation of the right elbow. No right elbow effusion is seen. There is medial and lateral calcific epicondylitis present. Joint spaces are maintained. Right wrist and forearm: There is a comminuted intra-articular fracture of the distal right radius. There appears to be neutral angulation of the radiocarpal joint. There is also some dorsal displacement of fracture fragments by up to 1.2 cm. There is medial displacement of a fracture fragment by approximately 7 mm. There is acquired positive ulnar variance. There is degenerative change of the first carpal metacarpal joint. There is associated soft tissue swelling. XR/XR forearm RT 2V IMPRESSION: No acute elbow fracture or effusion identified. Comminuted intra-articular fracture with displaced fragments distal right radius as described.
[2022-04-16 12:20] VITALS: BP 138/87; PULSE 81; RESP 18; TEMP 36.7; O2SAT 94; BMI 27.4
[2022-04-16] MEDS: Acetaminophen 325 MG TABLET 650 MG PO (12:27)
--- OUTSIDE RECORDS SUMMARY | 2022-04-16 13:07 | XMS_ITS | Continuity of Care Document ---
:1965 Author Organization [facility] Address [address] [place] [id number]- Care Team Providers Name Role Phone Alejandro Winkler MD Primary Care Physician Encounter [facility] [place] Date(s): 03/03/21 - 04/02/21 [facility] [address] [place] [id number] Attending Physician: Sherie Walker Admitting Physician: Sherie Walker Referring Physician: trSherie Allergies, Adverse Reactions, Alerts Substance Reaction Severity Status penicillin hives Active Medications atenolol 25 mg oral tablet = 0.5 mg, By Mouth, Daily, 0 Refills, Maintenance, 06/30/11 12:33:10 Start Date: 06/30/11 Status: OrderedIbuprofen Refills 0, Maintenance, 07/23/18 12:59:04 EST Start Date: 07/23/18 Status: OrderedKlonopin 2 mg oral tablet 1 tablet = 2 mg, By Mouth, Daily, PRN Pain , Severe, 0 Refills, Maintenance Start Date: 06/30/11 Status: OrderedMethadone Liquid = 47 mg, By Mouth, Daily, At [facility], 0 Refills, Maintenance, 10/10/12 7:53:14, Solution Start Date: 10/10/12 Status: OrderedoxyCODONE 5 mg oral tablet 2.5 mg, 0.5, tablet, By Mouth, Every 6 hours, PRN, Take half tablet to 1 tablet as needed for pain every 6 hours, # 7 tablet, Refills 0, Tot. Refills 0, Maintenance, for pain, 02/05/19 10:38:53 EDT, Print Requisition, Partial fill upon patient request Start Date: 02/05/19 Status: Orderedtamsulosin 0.4 mg oral capsule 0.4 mg, 1, capsule, By Mouth, Daily, # 7 capsule, Refills 0, Tot. Refills 0, Maintenance, 02/05/19 10:39:02 EDT, Print Requisition Start Date: 02/05/19 Status: OrderedVitamin D3 oral tablet 2 tablet = 800 International_Units, By Mouth, Daily, # 60 tablet, 0 Refills, Maintenance, 07/23/18 12:59:19 EST, Tablet Start Date: 07/23/18 Status: OrderedZocor 20 mg oral tablet 20 mg, 1, tablet, By Mouth, Daily at bedtime, Refills 0, Maintenance, 12/31/15 14:07:26 Start Date: 12/31/15 Status: Ordered Problem List Condition Effective Dates Status Health Status Informant Chronic hepatitis C(Confirmed) Active Former cigarette smoker(Confirmed) Active Hypertension(Confirmed) Active Knee pain(Confirmed) Active Low back pain(Confirmed) Active Menopause(Confirmed) Active Patient on methadone maintenance Active therapy(Confirmed) Social History Social History Type Response Smoking Status Former smoker; Type: Cigaret sundeep; Other: quit 1988; entered on: 12/31/15 Sex
--- OUTSIDE RECORDS SUMMARY | 2022-04-16 13:07 | XMS_ITS | Continuity of Care Document ---
:1965 Author Organization [facility] Address [address] [place] [id number]- Care Team Providers Name Role Phone Peterson LIMA, Alejandro Primary Care Phys[id number] Date[facility]s): [facility] - [facility] [address] [place] [id number] Attending Physician: Keely Gutiérrez MD Admitting Physician: Keely Gutiérrez MD Referring Physician: Alejandro Winkler MD Allergies, Adverse Reactions, Alerts Substance Reaction Severity [...] = 47 mg, By Mouth, Daily, At [facility], 0 Refills, Maintenance, 10/10/12 7:53:14, Solution Start [...]
--- OUTSIDE RECORDS SUMMARY | 2022-04-16 13:07 | XMS_ITS | Continuity of Care Document ---
:1965 Author Organization [facility] Address [address] [place] [id number]- Care Team Providers Name Role Phone Alejandro Winkler MD Primary Care Physician Encounter [facility] [place] Date(s): 04/03/21 - 04/03/[address] [id number]- Encounter Diagnosis Vomiting (Final) - 04/03/21 Discharge Disposition: A-D/C Home Attending Physician: Thelma Shin MD Admitting Physician: Thelma Shin MD Referring Physician: Not on Staff, Referring MD Allergies, Adverse Reactions, Alerts Substance Reaction [...] = 47 mg, By Mouth, Daily, At [facility], 0 Refills, Maintenance, 10/10/12 7:53:14, [...] Active Patient on methadone maintenance Active therapy(Confirmed) Vital Signs Most recent to oldest 1 2 3 [Reference Range]: Height 163 cm 163 cm 163 cm (04/03/21 5:56 PM) (04/03/21 3:30 PM) (04/03/21 1:3 5 PM) Weight 70 kg 70 kg 70 kg (04/03/21 5:56 PM) (04/03/21 3:30 PM) (04/03/21 1:3 5 PM) Oxygen Saturation [94-100 %] 98 % 97 % 94 % (04/03/21 5:56 PM) (04/03/21 3:30 PM) (04/03/21 1:3 5 PM) Pulse Rate [55-90 bpm] 74 bpm 72 bpm 74 bpm (04/03/21 5:56 PM) (04/03/21 3:30 PM) (04/03/21 1:3 5 PM) Body Mass Index [18.5-24.99] 26.35 *H* (04/03/21 3:30 PM) Blood Pressure [90-138/55-84 mm 128/82 mm Hg 126/85 mm Hg 100/82 mm Hg Hg] (04/03/21 5:56 PM) (04/03/21 3:30 PM) (04/03/21 1:3 5 PM) Respiratory Rate [16-30 br/min] 20 br/min 18 br/min 16 br/min (04/03/21 5:56 PM) (04/03/21 3:30 PM) (04/03/21 1:3 5 PM) Temperature [96.8-100.4 DegF] 98.6 DegF 99.1 DegF (04/03/21 3:30 PM) (04/03/21 1:35 PM) Mode of Delivery (Oxygen) Room air Room air Room a ir (04/03/21 5:56 PM) (04/03/21 3:30 PM) (04/03/21 1:3 5 PM) Blood pressure sites Arm, left Arm, right Arm, left (04/03/21 5:56 PM) (04/03/21 3:30 PM) (04/03/21 1:3 5 PM) Temperature Route Oral Oral (04/03/21 3:30 PM) (04/03/21 1:35 PM) Dry Weight 70 kg 70 kg 70 kg (04/03/21 5:56 PM) (04/03/21 3:30 PM) (04/03/21 1:3 5 PM) Social History Social History Type Response Smoking Status Former smoker; Type: Cigaret sundeep; Other: quit 1988; entered on: 12/31/15 Sex
[2022-04-16] MEDS: oxyCODONE HCl Immed Release 5 MG TABLET PO (13:48)
--- NOTE | 2022-04-16 13:50 | ED.EXTPRO ---
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 denies taking anticoagulation. Denies sx prior to fall. Denies neck/back pain, CP/SOB, abdominal pain, numbness, weakness MD Complaint: extremity pain and extremity swelling Onset (ago): minute(s) Related Data Home Medications Medication Instructions Recorded Confirmed amlodipine 5 mg tablet 5 mg PO DAILY 09/14/20 10/28/20 atenolol 25 mg tablet 25 mg PO DAILY 09/14/20 10/28/20 cholecalciferol (vitamin D3) 50 50 mcg PO DAILY 09/14/20 10/28/20 mcg (2,000 unit) capsule clonazepam 1 mg tablet 1 mg PO DAILY 09/14/20 10/28/20 methocarbamol 750 mg tablet 750 mg PO TID 09/14/20 10/28/20 simvastatin 40 mg tablet 40 mg PO BEDTIME 09/14/20 10/28/20 docusate sodium 100 mg capsule 100 mg PO BID 12/20/21 famotidine 20 mg tablet 20 mg PO BEDTIME 12/20/21 folic acid 1 mg tablet 1 mg PO DAILY 12/20/21 furosemide 20 mg tablet 20 mg PO DAILY 12/20/21 rosuvastatin 40 mg tablet 40 mg PO DAILY 12/20/21 sennosides 8.6 mg tablet (senna) 17.2 mg PO DAILY 12/20/21 thiamine HCl (vitamin B1) 100 mg 100 mg PO DAILY 12/20/21 tablet (Vitamin B-1) Previous Rx's Medication Instructions Recorded ondansetron 4 mg disintegrating 4 mg PO TID PRN nausea and 12/04/20 tablet vomiting 5 days #10 tabs acetaminophen 300 mg-codeine 30 mg 1 tab PO Q6H PRN pain (scale score 04/16/22 tablet 7-10) 3 days #9 tabs ibuprofen 800 mg tablet 800 mg PO Q8H PRN pain #14 tabs 04/16/22 Allergies Allergy/AdvReac Type Severity Reaction Status Date / Time penicillin V Allergy Unknown hives Verified 04/16/22 12:20 Review of Systems Review of Systems: Constitutional: No Fever, No Chills, No Fatigue, No Malaise ENT/Mouth: No Ear Pain, No Nasal Congestion, No sore throat, No Rhinorrhea, No Swallowing Difficulty Eyes: No Eye Pain, No Swelling, No Redness, No Vision Changes Cardiovascular: No Chest Pain, No SOB, No Edema, No Palpitations Respiratory: No Cough, No Sputum, No Dyspnea Gastrointestinal: No Nausea, No Vomiting, No Diarrhea, No Constipation, No Abdominal pain Genitourinary: No Dysuria, No Urinary Frequency, No Hematuria, No Urgency, No Flank Pain Musculoskeletal: + joint pain, No Myalgias, + Joint Swelling Skin: No Skin Lesions, No rash Neuro: No Weakness, No Numbness, No Paresthesias, No Loss of Consciousness, No Dizziness, + Headache Yes all other systems are reviewed and are negative Constitutional: Constitutional: Reports as per HPI Neurologic: Denies Abnormal speech present [facility] Past Medical History Attestation statement: The following information was validated with the patient. Medical History High cholesterol History of ovarian cyst HTN (hypertension) Non-toxic multinodular goiter Social History Social History Alcohol intake: current Alcohol intake frequency: 3 or more drinks per day Alcohol type: hard liquor Patient Tobacco Use Status: Former Tobacco user Substance Use Type: Heroin Advance Directives: No Advance Directives Information Provided: Yes Current occupational status: unemployed Current occupation: rt handed Physical Exam Vital Signs: Vital Signs: Last Vital Signs Temp 98.1 F 04/16/22 12:20 Pulse 81 04/16/22 12:20 Resp 18 04/16/22 12:20 BP 138/87 04/16/22 12:20 Pulse Ox 94 04/16/22 12:20 O2 Del Method 04/16/22 12:20 BMI result Body Mass Index 27.4 Const: General: cooperative and no acute distress Orientation/consciousness: patient oriented x3 Limitations: no limitations HEENT: Other: + hematoma with overlying abrasion noted to right forehead, mildly tender. No appreciable orbital step-off. EOMs intact without pain Head: Yes normal to inspection and Yes hematoma Ears: hearing grossly normal bilaterally General nose exam: Normal external nose present Face and sinus: Yes normal facial exam Throat: Yes posterior oropharynx normal, Yes tonsils normal and Yes uvula midline Eyes: General: appearance normal, both eyes and all related structures Pupils: Equal, round and reactive pupils present EOM: EOMs intact bilaterally Neck: Other: No midline cervical spinous tenderness Neck: Yes normal visual inspection and Yes no meningeal signs Resp: Effort & Inspection: normal respiratory effort and no respiratory distress Cardio: Rate: regular rate Heart sounds: S1 normal heart sound present and S2 normal heart sound present Peripheral pulses: radial pulses present and ulnar radial pulses present GI: Inspection: Yes normal to inspection Palpation (GI): Soft to palpation, nontender, no guarding and not rigid : General: Yes no CVA tenderness Back/Spine/Pelvis: Other: No midline thoracic/lumbar spinous tenderness/step-off or deformity Back: no CVA tenderness Skin: Rashes: no rashes Wounds: no wounds Neuro: General: patient oriented x3, gait normal, tone normal, no meningeal signs, no focal motor deficits and CN's II-XI intact bilaterally Cranial nerves: Yes CN's II-XII intact bilaterally and Yes Equal, round and reactive pupils present Cognition (Neuro): normal cognition Speech: No Abnormal speech present Gait exam (Neuro): Normal gait present Extrem: Other: + right elbow with small abrasion and mild swelling, tender to palpation. Right wrist with noted deformity and swelling, diffusely tender, decreased range of motion secondary pain/swelling. Digits nontender. Pulses intact. Right shoulder/clavicle and humerus nontender Course Course Course Narrative: CT head/brain wo IV con IMPRESSION: No acute intracranial pathology. XR elbow RT min 3V/XR forearm RT 2V/XR hand wrist RT IMPRESSION: No acute elbow fracture or effusion identified. ? Comminuted intra-articular fracture with displaced fragments distal right radius as described.? > performed hematoma block and pulled traction to fingers and sugar-tong splint applied with sling XR wrist RT 2V IMPRESSION: Comminuted intra-articular fracture distal right radius with neutral angulation of the radiocarpal joint. No significant change in alignment post reduction of intra-articular comminuted and mildly displaced fracture of the distal right radius with what appears to be neutral angulation of the radiocarpal joint. 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 On exam vital signs stable, NAD, nontoxic appearing, A&O x3, physical exam as above. Concern for ICH vs fracture. Plan: Head CT, x-rays, reassess Medical Records Attestation: I reviewed the patient's medical records. Lab Data Attestation: I reviewed the patient's lab results. Procedures Orthopedic Fracture Reduction Fracture #1: Side: right Fracture Reduction Location: radius Analgesia: hematoma block Technique: direct manipulation Post Reduction X-rays Demonstrate: acceptable reduction Post-reduction neuro exam: intact Post-reduction vascular exam: intact Splint Applied: Yes Patient Tolerated Procedure: well Orthopedic Splinting/Casting Injury #1: Side: right Upper Extremity Injury Location: wrist Upper Extremity Immobilizer: sling/shoulder immobilizer Discharge Plan Discharge Clinical Impression: Distal radius fracture, right Patient Disposition: Home, Self-Care Instructions: Wrist Fracture in Adults (ED) Additional Instructions: You have a distal radius fracture that is comminuted and mildly displaced. Keep splint on, dry, and clean You need to follow-up with the building specialist next week, call to make an appointment on Monday Ice and elevate Tylenol with codeine is an opiate pain medication, take only when pain is severe for the next 3 days In addition take ibuprofen Use sling If fingers become increasingly swollen, discolored, numb, or pain is unbearable remove splint and return to the ED immediately Prescriptions: New acetaminophen-codeine 300-30 mg tablet 1 tab PO Q6H PRN (Reason: pain (scale score 7-10)) 3 Days Qty: 9 0RF ibuprofen 800 mg tablet 800 mg PO Q8H PRN (Reason: pain) Qty: 14 0RF No Action ondansetron 4 mg tablet,disintegrating 4 mg PO TID PRN (Reason: nausea and vomiting) 5 Days Qty: 10 0RF atenolol 25 mg tablet 25 mg PO DAILY cholecalciferol (vitamin D3) 50 mcg (2,000 unit) capsule 50 mcg PO DAILY amlodipine 5 mg tablet 5 mg PO DAILY simvastatin 40 mg tablet 40 mg PO BEDTIME clonazepam 1 mg tablet 1 mg PO DAILY methocarbamol 750 mg tablet 750 mg PO TID furosemide 20 mg tablet 20 mg PO DAILY folic acid 1 mg tablet 1 mg PO DAILY famotidine 20 mg tablet 20 mg PO BEDTIME sennosides [senna] 8.6 mg tablet 17.2 mg PO DAILY rosuvastatin 40 mg tablet 40 mg PO DAILY thiamine HCl (vitamin B1) [Vitamin B-1] 100 mg tablet 100 mg PO DAILY docusate sodium 100 mg capsule 100 mg PO BID Referrals: [facility] [Provider Group] - 5 days (5-7 days) Stand Alone Forms: Work/School Release
[2022-04-16] MEDS: Lidocaine HCl 1 % MPF 2 ML VIAL INFILTRATI ×2 (14:19)
== END 2022-04-16 16:49 | disposition home or self-care (01) ==
PROVIDERS: Emergency Provider Emergency Medicine; PCP Internal Medicine
DX: S63.004A Unspecified dislocation of right wrist and hand, initial encounter (principal); S52.501A Unspecified fracture of the lower end of right radius, initial encounter for closed fracture; S00.81XA Abrasion of other part of head, initial encounter; W17.89XA Other fall from one level to another, initial encounter; Y93.89 Activity, other specified; Y92.524 Gas station as the place of occurrence of the external cause; Y99.9 Unspecified external cause status
CPT/HCPCS: 25605; 70450; 73080; 73090; 73100; 73110; 73130; 99283; 99284

== ENCOUNTER 2022-04-18 20:51 | Outpatient (REF) | payer OTHER, SELFPAY ==
--- NOTE | ~2022-04-18 | XR_ITS ---
EXAMINATION: XR WRIST, RIGHT CLINICAL INFORMATION: Pain in right wrist COMPARISON: 04/16/2020 TECHNIQUE: PA, lateral, and oblique views of the right wrist, obtained in the cast. FINDINGS: Allowing for limitations of technique there is no interval change in position of comminuted fracture distal radius with multiple fragments close to anatomical alignment and mild displacement of largest fragment. XR/XR wrist RT min 3V IMPRESSION: No interval change. Comminuted fracture of the distal radius
== END 2022-04-18 20:52 | disposition home or self-care (01) ==
LOC: HO.HOSX 20:51
PROVIDERS: Visit Provider Orthopaedic Surgery
DX: M25.531 Pain in right wrist (principal)
CPT/HCPCS: 73110

== ENCOUNTER 2022-04-19 10:57 | Outpatient (REF) | payer OTHER, SELFPAY | END 2022-04-19 10:58 | disposition home or self-care (01) | LOC: HO.HOSX 10:57 | PROVIDERS: Visit Provider Orthopaedic Surgery | DX: S52.501A Unspecified fracture of the lower end of right radius, initial encounter for closed fracture (principal); S52.301A Unspecified fracture of shaft of right radius, initial encounter for closed fracture; G56.01 Carpal tunnel syndrome, right upper limb | CPT/HCPCS: 99202 ==

== ENCOUNTER 2022-04-21 08:00 | Day surgery (SDC) | payer OTHER, SELFPAY ==
--- NOTE | 2022-04-20 10:24 | HO.ANESPROP2 ---
Documented by User: Antionette Lindsey NP 04/20/22 10:24 HPI - Anesthesia Eval Consult details Narrative: 57yo F for Right Radius Distal Fracture ORIF, Raduis shaft ORIF,possible external fixation, Right Carpal Tunnel Release PMFSH Active Problems Active Problems: All Active Problems (Updated 04/19/22 @ 11:31 by Katie Higgins MD) Acute carpal tunnel syndrome of right wrist (Acute) Fracture of shaft of right radius (Acute) Distal radius fracture, right (Acute) Rotator cuff dysfunction (Acute) Non-toxic multinodular goiter (Acute) Fracture of greater tuberosity of right humerus (Acute) Past Medical History Medical History (Updated 04/21/22 @ 08:39 by Laurence Cantrell RN) Congestive heart failure (CHF) High cholesterol History of ovarian cyst HTN (hypertension) Non-toxic multinodular goiter Social History Social History Alcohol intake: current Alcohol intake frequency: 3 or more drinks per day Alcohol type: hard liquor Patient Tobacco Use Status: Former Tobacco user Quit Date: 40 years ago Substance Use Type: Heroin Current occupational status: unemployed Current occupation: rt handed Meds Allergies Allergy/AdvReac Type Severity Reaction Status Date / Time penicillin V Allergy Unknown hives Verified 04/19/22 10:42 Home Medications Medication Instructions Recorded Confirmed Last Taken Type amlodipine 5 mg tablet 5 mg PO DAILY 09/14/20 10/28/20 04/21/22 History atenolol 25 mg tablet 25 mg PO DAILY 09/14/20 10/28/20 04/21/22 History cholecalciferol (vitamin D3) 50 50 mcg PO DAILY 09/14/20 10/28/20 Unknown History mcg (2,000 unit) capsule clonazepam 1 mg tablet 1 mg PO DAILY 09/14/20 10/28/20 04/21/22 History methocarbamol 750 mg tablet 750 mg PO TID 09/14/20 10/28/20 Unknown History simvastatin 40 mg tablet 40 mg PO BEDTIME 09/14/20 10/28/20 Unknown History docusate sodium 100 mg capsule 100 mg PO BID 12/20/21 Unknown History famotidine 20 mg tablet 20 mg PO BEDTIME 12/20/21 Unknown History folic acid 1 mg tablet 1 mg PO DAILY 12/20/21 Unknown History rosuvastatin 40 mg tablet 40 mg PO DAILY 12/20/21 Unknown History sennosides 8.6 mg tablet (senna) 17.2 mg PO DAILY 12/20/21 Unknown History thiamine HCl (vitamin B1) 100 mg 100 mg PO DAILY 12/20/21 Unknown History tablet (Vitamin B-1) bumetanide 0.5 mg tablet 0.5 mg PO DAILY 04/19/22 Unknown History lidocaine 5 % topical patch 1 patch topical DAILY PRN pain 04/19/22 Unknown History methadone 04/21/22 04/21/22 History Exam Exam Date and Time: April 20, 2022 1024 Assessment and Plan Assessment Anesthesia Assessment: Chart Reviewed Documented by User: Vince Bashir MD 04/21/22 18:11 [facility] Past Medical History Medical History (Updated 04/21/22 @ 08:39 by Laurence Cantrell RN) Congestive heart failure (CHF) High cholesterol History of ovarian cyst HTN (hypertension) Non-toxic multinodular goiter Family History Family history of problems with anesthesia: No Surgical History History of Problems with Anesthesia: No Social History Social History Alcohol intake: current Alcohol intake frequency: 3 or more drinks per day Alcohol type: hard liquor Patient Tobacco Use Status: Former Tobacco user Quit Date: 40 years ago Substance Use Type: Heroin Current occupational status: unemployed Current occupation: rt handed Meds Allergies Allergy/AdvReac Type Severity Reaction Status Date / Time penicillin V Allergy Unknown hives Verified 04/19/22 10:42 Home Medications Medication Instructions Recorded Confirmed Last Taken Type amlodipine 5 mg tablet 5 mg PO DAILY 09/14/20 10/28/20 04/21/22 History atenolol 25 mg tablet 25 mg PO DAILY 09/14/20 10/28/20 04/21/22 History cholecalciferol (vitamin D3) 50 50 mcg PO DAILY 09/14/20 10/28/20 Unknown History mcg (2,000 unit) capsule clonazepam 1 mg tablet 1 mg PO DAILY 09/14/20 10/28/20 04/21/22 History methocarbamol 750 mg tablet 750 mg PO TID 09/14/20 10/28/20 Unknown History simvastatin 40 mg tablet 40 mg PO BEDTIME 09/14/20 10/28/20 Unknown History docusate sodium 100 mg capsule 100 mg PO BID 12/20/21 Unknown History famotidine 20 mg tablet 20 mg PO BEDTIME 12/20/21 Unknown History folic acid 1 mg tablet 1 mg PO DAILY 12/20/21 Unknown History rosuvastatin 40 mg tablet 40 mg PO DAILY 12/20/21 Unknown History sennosides 8.6 mg tablet (senna) 17.2 mg PO DAILY 12/20/21 Unknown History thiamine HCl (vitamin B1) 100 mg 100 mg PO DAILY 12/20/21 Unknown History tablet (Vitamin B-1) bumetanide 0.5 mg tablet 0.5 mg PO DAILY 04/19/22 Unknown History lidocaine 5 % topical patch 1 patch topical DAILY PRN pain 04/19/22 Unknown History methadone 04/21/22 04/21/22 History Exam Airway Mallampati Class: III TM Dist: >3cm Neck ROM: Full Loose/Missing/Broken Teeth: Yes Heart: S1,S2 Lungs: b/l breath sounds Assessment and Plan Assessment Anesthesia Assessment: Anesthesia Plan Discussed Final Anesthetic Review Family History of Problems with Anesthesia: No History of Problems with Anesthesia: No NPO: Yes ASA Class: III and Emergency Final Preanesthetic Review: Meds/Allgs Chart Reviewed, Consent Obtained/Reviewed and Anes Risks/Benef Reviewed Patient Risk: High Procedure Risk: Intermediate Anesthetic Plan Anesthetic Plan: GA and Regional Block Disposition: Standard PACU
[2022-04-21] VITALS (13 sets, daily range): BP systolic 93–141; BP diastolic 56–74; PULSE 72–98; RESP 14–19; TEMP 36.9–37.3; O2SAT 92–97; BMI 27.4
--- NOTE | ~2022-04-21 | FL_ITS ---
EXAMINATION: XR FLUOROSCOPY WITH IMAGES CLINICAL INFORMATION: Comminuted intra-articular fracture distal right radius, reduction. COMPARISON: Radiographs right wrist 04/19/2022, 04/16/2022, right elbow 04/16/2022 TECHNIQUE: Fluoroscopy performed by Dr. Katie Higgins. Fluoroscopy time: 1.1 minutes. Cumulative Dose: 2.44 mGy. DAP: 0.15 Gycm2. Images: 10. FINDINGS: Distal radial fracture is reduced with volar side plate and multiple screws. There is improved near-anatomic alignment. The ulnar variance is near neutral. No dislocation. Hardware intact. FL/FL guidance in OR IMPRESSION: Status post reduction distal radial fracture. Hardware intact.
[2022-04-21 08:30] LABS: Amphetamine Screen Urine Not Detected (Not Detect); Barbiturates, Urine Not Detected (Not Detect); Benzodiazepines Screen Urine Not Detected (Not Detect); Cannabinoid Screen Urine Not Detected (Not Detect); Cocaine Screen Urine Not Detected (Not Detect); Fentanyl, urine POSITIVE (Not Detect); Opiate Screen Urine POSITIVE (Not Detect); Phencyclidine Screen Urine Not Detected (Not Detect)
[2022-04-21] MEDS: Lactated Ringers 1,000 ML 100 ML IVCONT (08:53)
--- NOTE | 2022-04-21 09:11 | PC.NURSE ---
urine + opiate (on methadone, + fentanyl, Dr. Bashir aware. plan to block agreed by pt.
--- NOTE | 2022-04-21 09:46 | MHC.SHP ---
Pre-Procedural Eval Section A Date of Service: 04/21/22 The patient is an INPATIENT: No Changes since office visit: Yes Cold of Flu in the past 2 weeks, Yes New Medical Problems, Yes Changes in Medication and Yes Patient answered all questions The History & Physical has been completed within 30 days and I have reviewed it.: No Section B Chief Complaint: Displaced comminuted fracture of shaft of radius, Allergies: Allergies Allergy/AdvReac Type Severity Reaction Status Date / Time penicillin V Allergy Unknown hives Verified 04/19/22 10:42 Exam Exam Comment: The patient was positive for fentanyl on her tox screen today. Plan The patient tested positive for fentanyl on her tox screen today. I talked with William Tesfaye of anesthesia. I do think that there is some urgency to fixing this fracture on because of the severity and complex nature of the fracture. After talking with Anesthesia we are moving forward with a regional block Plus anesthesia per their recommendations,and they will be adjusting anesthesia as necessary during the case. I have reviewed the history and physical and performed a pertinent physical examination on my patient. No changes have occurred unless specified.
--- NOTE | 2022-04-21 09:50 | W.PM.OPN ---
Operative Note Operative Note Date of Service: 04/21/22 Narrative: Operative Note Narrative: Preop diagnosis: 1. Left intra-articular Distal radius fracture 2. This fracture also involves a comminuted fracture of the radius shaft 3. Right acute carpal tunnel syndrome Postop diagnosis: Same Procedure: 1. open reduction internal fixation of the left distal radius intra-articular fracture, and 2. open reduction internal fixation of the left radius shaft fracture 3. Right carpal tunnel release Surgeon: Katie Higgins MD Anesthesia: General anesthesia plus regional block Findings: fracture intra-articular at the DRUJ. Comminution extending up into the radius shaft with at least 2 butterfly fragments Implants: A 5 hole intermediate Ferannda volar locking plate, with 5x 2.4 mm locking pegs/screws, and 5 X 2.4 mm cortical screws. 0.062 K-wire x1 Tourniquet time: 133 minutes EBL: 5.0 ml Specimen: None Drains: None Complications: None Disposition: Brought to the recovery room in stable condition Plan: Follow-up in 10-14 days for wound check, suture removal and postop radiographs The patient will be placed in either a short-arm cast Encouraged no lifting of anything heavier than a cell phone. Please encourage active and passive range of motion of the digits. Follow-up at 6 weeks postop for repeat radiographs. Indications: The patient is a 57 year old woman with complex fracture involving the distal radius and the articular surface, as well as extending proximally into the radius shaft with at least 2 butterfly fragments. . The risks and benefits of operative treatment, including but not limited to risk of damage to blood vessels, nerves, tendons, infection, recurrence, persistent pain or numbness, incomplete resolution of preoperative symptoms, or need for further surgery were discussed with the patient and they wished to proceed with surgery. Procedure: Once consent was obtained patient was brought back to the operating suite and placed in the operating table in a supine position. A regional block was performed by the anesthesia team. Perioperative antibiotics and anesthesia was administered by the anesthesia team. A tourniquet was applied to the proximal aspect of the Left upper extremity and the limb was prepped and draped in a standard surgical fashion. The limb was elevated exsanguinated with Esmarch bandage and the tourniquet inflated to 250 mm of mercury for a total tourniquet time of 133 minutes. Once assured that we had a good block, a 2.0 cm longitudinal incision was made centered over the right carpal tunnel. The incision was made through the skin to the subcutaneous tissues using a #15 blade. Dissection was made down to the level of the transverse carpal ligament with care being taken to protect the palmar cutaneous nerve. Once the transverse carpal ligament was clearly visualized, a longitudinal incision was made in the transverse carpal ligament 1st using a #15 blade, then using tenotomy scissors under direct visualization. Care was taken to look for and protect the motor branch of the median nerve when seen in this area. Once satisfied with our carpal tunnel release the wound was irrigated with normal saline. The FluoroScan was used throughout the case to assess our reduction, and facilitate implant placement. I made a 12 cm longitudinal incision over the distal aspect of the flexor carpi radialis tendon. The incision was made through the skin to the subcutaneous tissue using a 15. Blade. Then carefully dissected down to flexor carpi radialis tendon she tenotomy scissors. The FCR tendon sheath was then incised longitudinally using tenotomy scissors under direct visualization. The FCR tendon was then retracted ulnarly. I then made a longitudinal incision in the volar forearm fascia through the floor of FCR tendon sheath using tenotomy scissors under direct visualization. I identified the interval between the radial artery and the flexor tendons. This interval was developed further with my index finger, releasing some of the muscular fibers of the flexor pollicis longus. A dull weatlander retractor was then placed. I then created an ulnarly based flap of the pronator quadratus by releasing the radial and distal edges using a 15. Blade. A Reyes elevator was used to elevate the pronator quadratus from the volar surface of the distal radius. This then revealed to us our distal radius fracture. this fracture was complex with significant comminution including and intra-articular fracture line extending into the DRUJ, and at least 2 butterfly fractures extending up into the shaft of the radius. An open reduction was then performed on our distal radius fracture. Our reduction was provisionally held with a 0.062 K-wire extending from the radial styloid retrograde and obliquely into the more ulnar butterfly fragment. The K-wire was then bent cut short had a pin cap applied. I then placed a Five hole intermediate Fernanda volar locking plate on the volar surface of the distal radius. I placed a single K-wire through the distal aspect of the plate and into the distal radius. This was assessed using fluoroscopic images. I was satisfied with the placement of our plate. a 2nd K-wire was then placed through the distal aspect of the plate to hold its position. I then placed 4. X 2.4 mm locking screws/pegs in the distal aspect of the plate and distal radius by 1st drilling bicortically with a drill bit, measuring with a depth gauge, and placing the appropriate length locking screws/pegs. The placement of our plate and screws was then assessed again using fluoroscopic images. The once satisfied with the placement of the volar locking plate and screws on the distal aspect of the distal radius, the plate and 2 butterfly fragments were then reduced to the shaft of the radius. I then placed 4x 2.4 mm cortical screws to the proximal aspect of the plate and into the shaft of the radius. This was done by 1st drilling bicortically with a drill bit, measuring with a depth gauge, and placing the appropriate length screw. The DRUJ was assessed and found to be stable on exam. I then attempted to place a lag screw obliquely from the radial aspect of the shaft extending obliquely and distal ulnarly into the more ulnarly position butterfly fragment. I 1st pre drilled the near cortex and then across the fracture into the distal ulnar butterfly fragment cortex using a smaller drill bit. We had some difficulty trying to properly position the lag screw. I then decided to place a screw through the most distal hole in the longitudinal portion of the plate Instead of the lag screw. This was done by 1st drilling bicortically and then placing the appropriate length cortical screw. This screw appeared to capture Our more ulnarly position butterfly fragment. final radiographs were then obtained. I was satisfied with our reduction and placement of all implants. At this point the Wounds were irrigated with normal saline. The tourniquet was then deflated and hemostasis was obtained with a brief period of local pressure and bipolar monopolar electrocautery. The subcutaneous layer was then reapproximated using some 4-0 Vicryl suture, and the skin edges were reapproximated using some 5 0 Prolene suture. The wound was then infiltrated with some 0.5% plain ropivacaine postop pain control. A sterile dressing and a short dorsal splint allowing for active flexion and extension of the digits was applied. The patient appears to have tolerated the procedure well and with no complications. All digits were well vascularized conclusion of the case.
== END 2022-04-21 16:47 | disposition home or self-care (01) ==
PROVIDERS: Nurse Practitioner; PCP Internal Medicine; Visit Provider Orthopaedic Surgery
PROC: (CPT 25608; principal; 2022-04-21 08:40)
PROC: (CPT 64721; 2022-04-21 08:40)
DX: S52.351A Displaced comminuted fracture of shaft of radius, right arm, initial encounter for closed fracture (principal); S52.571A Other intraarticular fracture of lower end of right radius, initial encounter for closed fracture; G56.01 Carpal tunnel syndrome, right upper limb; W01.0XXA Fall on same level from slipping, tripping and stumbling without subsequent striking against object, initial encounter; Y93.89 Activity, other specified; Y92.524 Gas station as the place of occurrence of the external cause; Y99.8 Other external cause status; I10 Essential (primary) hypertension; E78.00 Pure hypercholesterolemia, unspecified; E04.2 Nontoxic multinodular goiter; F11.20 Opioid dependence, uncomplicated; Z88.0 Allergy status to penicillin; Z87.891 Personal history of nicotine dependence
CPT/HCPCS: 25608; 25515; 64721; 80307; C1713; J1100; J1170; J2250; J2405; J2795; J3010

== ENCOUNTER 2022-05-02 11:15 | Outpatient (REF) | payer OTHER, SELFPAY | END 2022-05-02 11:16 | disposition home or self-care (01) | LOC: HO.HOSX 11:15 | PROVIDERS: Visit Provider Orthopaedic Surgery | DX: Z13.89 Encounter for screening for other disorder (principal) ==

== ENCOUNTER 2022-05-06 12:39 | Outpatient (REF) | payer OTHER, SELFPAY | END 2022-05-06 12:40 | disposition home or self-care (01) | LOC: HO.HOSX 12:39 | PROVIDERS: Visit Provider Physician Assistant | DX: Z13.89 Encounter for screening for other disorder (principal) ==

== ENCOUNTER 2022-05-09 16:03 | Outpatient (REF) | payer OTHER, SELFPAY | END 2022-05-09 16:04 | disposition home or self-care (01) | LOC: HO.HOSX 16:03 | PROVIDERS: Visit Provider Orthopaedic Surgery | DX: Z13.89 Encounter for screening for other disorder (principal) ==

== ENCOUNTER 2022-05-17 11:28 | Outpatient (REF) | payer OTHER, SELFPAY ==
--- NOTE | ~2022-05-17 | XR_ITS ---
EXAMINATION: XR WRIST, RIGHT CLINICAL INFORMATION: Fracture. COMPARISON: Previous x-rays most recent April 19 and April 21. TECHNIQUE: PA, lateral, and oblique views of the right wrist. FINDINGS: There is orthopedic hardware with plate and screws and K-wire or pin in the distal radius. There is a comminuted displaced fracture of the distal radius intra-articular with the radiocarpal joint and involving the proximal shaft. There is slight ulnar displacement of a large fracture fragment in the proximal shaft. This is probably not appreciably changed. There is an ulnar styloid fracture. There is mild arthritis at the 1st JAIL joint. The bones are osteopenic. There is diffuse soft tissue swelling. XR/XR wrist RT min 3V IMPRESSION: ORIF of comminuted displaced fracture of the distal radius intra-articular with the radiocarpal joint and involving the proximal shaft.
== END 2022-05-17 11:29 | disposition home or self-care (01) ==
LOC: HO.HOSX 11:28
PROVIDERS: Visit Provider Physician Assistant
DX: S52.301A Unspecified fracture of shaft of right radius, initial encounter for closed fracture (principal); S52.501A Unspecified fracture of the lower end of right radius, initial encounter for closed fracture; G56.01 Carpal tunnel syndrome, right upper limb
CPT/HCPCS: 29085; 73110

== ENCOUNTER 2022-06-06 | Outpatient (REF) | payer OTHER, SELFPAY ==
--- NOTE | ~2022-06-06 | XR_ITS ---
EXAMINATION: XR WRIST, RIGHT CLINICAL INFORMATION: Follow-up fracture. COMPARISON: Right wrist 05/17/2022 TECHNIQUE: PA, lateral, and oblique views of the right wrist. FINDINGS: There is a comminuted fracture distal radius stabilized with volar plate and K wire. Displaced fracture fragments are stable and unchanged to 05/17/2022. There is diffuse osteopenia. There is mild soft tissue edema. XR/XR wrist RT min 3V IMPRESSION: Comminuted fracture distal radius stabilized with volar plate and K wire. Mild displaced fracture fragments are stable compared to 05/18/2022. There is diffuse osteopenia.
== END 2022-06-06 00:01 | disposition home or self-care (01) ==
LOC: HO.HOSX
PROVIDERS: Visit Provider Orthopaedic Surgery
DX: M25.531 Pain in right wrist (principal)
CPT/HCPCS: 73110

== ENCOUNTER 2022-06-24 10:37 | Outpatient (REF) | payer OTHER, SELFPAY ==
--- NOTE | ~2022-06-24 | XR_ITS ---
EXAMINATION: XR SHOULDER, RIGHT CLINICAL INFORMATION: Pain. COMPARISON: Radiographs dated 01/11/2021. TECHNIQUE: AP external rotation, Grashey, scapular Y, and axillary views of the right shoulder. FINDINGS: There is bony demineralization. The glenohumeral joint is intact and shows very mild peripheral osteophyte formation. The acromioclavicular and coracoclavicular intervals are normal. There is mild osteoarthritic change of the acromioclavicular joint. No fracture or dislocation is seen. There is calcific tendinitis of the right rotator cuff insertion. A distal acromial undersurface osteophyte is seen, and there are eburnations of the greater tuberosity of the proximal right humerus. No fracture or dislocation is seen. There is no foreign body. No right pneumothorax is seen. A right internal jugular tunneled hemodialysis access catheter is noted. XR/XR shoulder RT min 2V IMPRESSION: 1. There is mild osteoarthritic change of the right glenohumeral and acromioclavicular joints. 2. No fracture or dislocation is seen. 3. Findings are consistent with right rotator cuff impingement and calcific tendinitis.
== END 2022-06-24 10:38 | disposition home or self-care (01) ==
LOC: HO.HOSX 10:37
PROVIDERS: Visit Provider Orthopaedic Surgery
DX: M25.511 Pain in right shoulder (principal); Z87.81 Personal history of (healed) traumatic fracture
CPT/HCPCS: 73030; 99212

== ENCOUNTER 2022-07-08 09:30 | Outpatient (RCR) | payer OTHER, SELFPAY ==
--- NOTE | 2022-06-15 13:32 | MHC.OT.EP ---
[address] [phone] Occupational Therapy Plan of Care Date of Evaluation: 06/15/22 Diagnosis: S/p right DR marcial S/P right CTR Assessment: Frequency and Duration: The patient will be seen 2 x wk x 4 wks Short Term Goals: Demo indep with HEP Dec right wrist pain to 0/10 at rest with use of protective splint as needed Wrist ext to 50 deg Wrist flex to 50 deg Wrist ulnar dev to 20 deg Senior Care Goals: Indep with HEP for R wrist and hand ROM and Strengthening Wrist ext to 60 deg Wrist flex to 55 deg Wrist ulnar dev to 25 deg Thumb op to stage 8 Right java android developer to 20 lb Quick DASH to <30 pt with modifications as needed Treatment Plan: Therapeutic Exercise Therapeutic Activity Home Exercise Program Splinting Patient Education Edema Control ADL Training Ultrasound Fluidotherapy MHP Soft Tissue Mobilization Electronically Signed By: Cecilia Ruiz OT CHT CLT Please Sign and return to therapist. Thank you once again for your referral.
== END 2022-08-18 10:17 | disposition home or self-care (01) ==
LOC: HO.OT 09:30
PROVIDERS: Visit Provider Orthopaedic Surgery
DX: G56.01 Carpal tunnel syndrome, right upper limb (principal); S52.301A Unspecified fracture of shaft of right radius, initial encounter for closed fracture; S52.501A Unspecified fracture of the lower end of right radius, initial encounter for closed fracture
CPT/HCPCS: 97110; 97140; 97166; 97530

== ENCOUNTER 2022-07-13 10:32 | Outpatient (REF) | payer OTHER, SELFPAY | END 2022-07-13 10:33 | disposition home or self-care (01) | LOC: HO.HOSX 10:32 | PROVIDERS: Visit Provider Orthopaedic Surgery | DX: Z13.89 Encounter for screening for other disorder (principal) ==

== ENCOUNTER 2022-08-10 16:48 | Outpatient (REF) | payer OTHER, SELFPAY ==
--- NOTE | ~2022-08-10 | XR_ITS ---
EXAMINATION: XR WRIST, RIGHT CLINICAL INFORMATION: Pain. COMPARISON: Radiographs dated 06/06/2022. TECHNIQUE: PA, lateral, and oblique views of the right wrist. FINDINGS: There is bony demineralization. A healing distal radial fracture is noted, with significantly increased osseous bridging from 06/06/2022. There is interim removal of the patient's orthopedic pin, and the previously applied distal radial fixator plate and fixator screws are intact, without failure or loosening noted. A mildly displaced ulnar styloid fracture is redemonstrated. The proximal and distal carpal rows are intact. There is mild osteoarthritic change of the first carpometacarpal joint. XR/XR wrist RT min 3V IMPRESSION: There is stable alignment of a distal right radial fracture. No hardware failure or loosening is seen. There is increased osseous bridging noted.
== END 2022-08-10 16:49 | disposition home or self-care (01) ==
LOC: HO.HOSX 16:48
PROVIDERS: Visit Provider Orthopaedic Surgery
DX: S52.501A Unspecified fracture of the lower end of right radius, initial encounter for closed fracture (principal); S52.301A Unspecified fracture of shaft of right radius, initial encounter for closed fracture; M19.041 Primary osteoarthritis, right hand; M19.042 Primary osteoarthritis, left hand
CPT/HCPCS: 73110; 99212

== ENCOUNTER 2022-09-22 10:57 | Outpatient (REF) | payer OTHER, SELFPAY ==
--- NOTE | 2022-09-22 11:56 | PM.OP ---
Brief Operative Note Date of Service: 09/22/22 Pre-op diagnosis: Multinodular Thyroid Procedure: This is doctor Myrtle Amin. This is an ultrasound-guided fine-needle aspiration report. Indication: Multinodular Thyroid Porcedure: Procedure was explained to the patient. Alternatives, the risk and benefits were discussed. Written consent was obtained. A time-out was also obtained. After sterile preparation, 1 ml of 1% lidocaine solution was applied subcutaneously for anesthetic effect. Then Fine-needle aspiration of a right mid pole 2.5 cm thyroid nodule was performed using direct ultrasound guidance to confirm accurate needle placement. Four aspirations were made using 27 gauge needles. Samples were submitted for cytology. One pass was dedicated for [employer] sequencing information tech testing. Our attention was then turned to the right lower pole. Fine-needle aspiration of a right lower pole 2.0 cm thyroid nodule was performed using direct ultrasound guidance to confirm accurate needle placement. Four aspirations were made using 27 gauge needles. An additional 2 aspirations were made using 25 guage needles. Samples were submitted for cytology. One pass was dedicated for [employer] sequencing information tech testing. The patient tolerated the procedure well. Aftercare instructions were provided. Impression: Uncomplicated fine needle aspiration biopsy of a right mid pole 2.5 cm thyroid nodule and a right lower pole 2.0 cm thyroid nodule under ultrasound guidance. Surgeon: Myrtle Amin, DO Was an Computational Sciences Professor used for this Procedure?: No Estimated blood loss (mL): 0
== END 2022-09-22 10:58 | disposition home or self-care (01) ==
LOC: HO.US 10:57
PROVIDERS: PCP Internal Medicine; Visit Provider Internal Medicine Endocrinology, Diabetes & Metabolism
DX: E04.2 Nontoxic multinodular goiter (principal)
CPT/HCPCS: 10005; 10006; 88172; 88173; 88177; 88305

== ENCOUNTER → 2022-10-07 09:33 | Outpatient (BNVA) | payer OTHER, SELFPAY | PROVIDERS: PCP Internal Medicine; Visit Provider Internal Medicine Endocrinology, Diabetes & Metabolism | DX: E04.2 Nontoxic multinodular goiter (principal) | CPT/HCPCS: 99212 ==

== ENCOUNTER 2023-10-25 10:07 | Outpatient (AMB) | payer OTHER, SELFPAY ==
--- NOTE | 2023-10-25 10:08 | A.OFFVIS_ITS ---
Vital Signs 10/25/23 10:09 Height 5 ft 4 in Weight 169 lb 8.568 oz BMI 29.1 BP 124/82 Blood Pressure Location Lt brachial Position Sitting Pulse 68 Pulse Source Pulse Oximeter Intake Visit Reasons: f/u MNG Intake Note: Patient present today for MNG follow up visit. Metal Sash Setter Required: No Accompanied by: Self / Same As Patient Allergies penicillin V Allergy (Unknown, Verified 10/25/23 10:12) hives HPI Comments Details: 58-year-old female, today for follow-up visit, she was last seen on 10/07/2022 for nontoxic multinodular goiterby Dr. Whiteside Today this visit is for fine-needle aspiration results. She had fine-needle aspiration of R mid and R lower pole nodule and right mid pole nodule on09/22/22, both nodules are consistent with benign follicular nodule, [place] category 2. She is feeling well. She is complaining of intermittent dysphagia. But now she reports that is not too much. She has to be a former patient of Dr Quevedo was last seen by him on 11/18/2016 for nontoxic multinodular goiter and decreased libido. She was getting testosterone gel by Dr. Quevedo for low libido. She has other past medical history of dyslipidemia, osteopenia, hypertension. She denies cold or heat intolerance, weigth loss or gain, diarrhea, constipation, imsomnia, fatigue, dry skin, dyspnea, dysphonia, tremors, palpitations, irritability, anxiety. Family History: She has positive family history of thyroid disease in her mother , she had vinayak thyroidectomy for unknown reason and he her sister that has hypothyroidism. Patient had fine-needle aspiration on 07/25/[address] Quevedo of right mid pole nodule , consistent with benign follicular nodule. US thyroid 02/12/2020 Right Thyroid Lobe: 5.2 x 1.7 x 2.0 cm, volume 9.2 mL. Previously 5.3 x 2.1 x 1.9 cm, volume 11.1 mL. Parenchyma: The gland echotexture is heterogeneous. Thyroid vascularity is increased. Left Thyroid Lobe: 5.0 x 1.8 x 2.7 cm, volume 12.7 mL. Previously 5.6 x 1.9 x 2.5 cm, volume 13.9 mL. Parenchyma: The gland echotexture is heterogeneous. Thyroid vascularity is increased. Isthmus: 0.2 cm in maximum AP dimension. Previously 0.2 cm. RIGHT THYROID LOBE: The 4 largest nodules are documented. It is difficult to compare nodules with prior exam. 1. Location: Upper pole/medial. Size: 0.7 x 0.4 x 0.6 cm. Previous: 0.7 x 0.5 x 0.5 cm.Nodule characteristics: Heterogeneous/complex cystic smooth margins, no calcification and minimal peripheral flow 2. Location: Mid pole. Size: 1.6 x 0.9 x 1.5 cm. Previous: 1.2 x 0.7 x 1.3 cm. Nodule characteristics: Heterogeneous, smooth margin, no calcification and positive intranodular flow 3. Location: Lower pole. Size: 1.0 x 0.5 x 0.9 cm. Previous: 1.0 x 0.6 x 0.9 cm. Nodule characteristics: Heterogeneous, smooth margin, no calcification and positive intranodular flow 4. Location: Lower pole. Size: 1.2 x 1.0 x 1.2 cm. Previous: 1.1 x 0.7 x 0.9 cm. Nodule characteristics: Heterogeneous, smooth margin, no calcification and positive intranodular flow ISTHMUS: No nodules. LEFT THYROID LOBE: The 4 largest nodules are documented. It is difficult to compare nodules with prior exam. 1. Location: Mid pole/lateral. Size: 0.9 x 1.2 x 1.0 cm. Previous: Not documented on the previous study. Nodule characteristics: Heterogeneous and complex cystic, smooth margin, no calcification and positive intranodular flow 2. Location: Mid pole/medial. Size: 1.3 x 1.1 x 1.2 cm. Previous: Not documented on the previous study. Nodule characteristics: Heterogeneous and complex cystic, smooth margin, no calcification and positive intranodular flow 3. Location: Mid pole/medial. Size: 1.5 x 1.1 x 1.3 cm. Previous: 1.3 x 1.4 x 1.1 cm. Nodule characteristics: Isoechoic, smooth margin with hypoechoic rind, no calcification and positive intranodular flow 4. Location: Lower pole. Size: 2.7 x 2.3 x 2.3 cm. Previous: 2.7 x 1.9 x 2.4 cm. Nodule characteristics: Heterogeneous, smooth margin, no calcification and positive intranodular flow NODES: No lymphadenopathy is seen in the tissue surrounding the thyroid gland. Laboratory Tests 11/06/19 11/06/19 12:18 12:18 Free T4 0.88 TSH 3rd Generation 1.05 Thyroglobulin Antibody <1 Thyroid Peroxidase Ab <1 PFSH Medical History Congestive heart failure (CHF) High cholesterol History of ovarian cyst HTN (hypertension) Non-toxic multinodular goiter Social History Alcohol intake: current Alcohol intake frequency: 3 or more drinks per day Alcohol type: hard liquor Patient Tobacco Use Status: Former Tobacco user Quit Date: 40 years ago Substance Use Type: Heroin Current occupational status: unemployed Current occupation: rt handed Physical Exam Vital Signs: Last Vital Signs Pulse 68 10/25/23 10:09 BP 124/82 10/25/23 10:09 BMI result Body Mass Index 29.1 Const Other: Thyroid is large in size weighs about 20 g . There are no thyroid nodules palpated Assessment & Plan Assessment & Plan (1) Non-toxic multinodular goiter: Code(s): E04.2 - Nontoxic multinodular goiter Category: Medical Plan: This is a 58-year-old white female with a history of multinodular goiter status post FNA of multiple nodules with benign cytology. She appears to be clinically euthyroid. Plan is to check TSH and free T4. We will repeat thyroid ultrasound. She had asked about getting a prescription for compounded testosterone but I told her I did not feel comfortable prescribing this off-label. Orders: Orders US thyroid Today E04.2 - Nontoxic multinodular goiter Coding Level of Care Code Est Pt Level 3 (01053) Diagnoses Non-toxic multinodular goiter E04.2
[2023-10-25 10:09] VITALS: BP 124/82; PULSE 68; BMI 29.1
== END 2023-10-25 10:45 | disposition home or self-care (01) ==
PROVIDERS: PCP Internal Medicine; Visit Provider Internal Medicine Endocrinology, Diabetes & Metabolism
DX: E04.2 Nontoxic multinodular goiter (principal)
CPT/HCPCS: 99213

== ENCOUNTER 2023-10-25 10:58 | Outpatient (REF) | payer OTHER, SELFPAY ==
[2023-10-25 13:38] LABS: Free T4 (Free Thyroxine) 0.92 ng/dL (0.71-1.85); Thyroid Stimulating Hormone 0.82 uIU/mL (0.32-4.0)
== END 2023-10-25 10:59 | disposition home or self-care (01) ==
LOC: HO.10HDL 10:58
PROVIDERS: Visit Provider Internal Medicine Endocrinology, Diabetes & Metabolism
DX: E04.2 Nontoxic multinodular goiter (principal)
CPT/HCPCS: 36415; 84439; 84443; 99212

== ENCOUNTER 2023-11-06 09:15 | Outpatient (REF) | payer OTHER, SELFPAY ==
--- NOTE | ~2023-11-06 | US_ITS ---
EXAMINATION: US THYROID CLINICAL INFORMATION: Nontoxic multinodular goiter. COMPARISON: Ultrasound-guided fine-needle aspiration 09/22/2022. Thyroid ultrasound 01/12/2022 and 02/12/2020. TECHNIQUE: Linear transducer de guzman-scale and color Doppler examination with attention to the region of the thyroid. FINDINGS: SIZE: Measurements of the thyroid lobes and nodules are given in sagittal, anteroposterior and transverse dimensions respectively. Right Thyroid Lobe: 5.9 x 2.0 x 2.1 cm, volume 13.0 mL. Previously 5.7 x 1.7 x 1.8 cm, volume 9.1 mL. Parenchyma: The gland echotexture is heterogeneous. Thyroid vascularity is increased. Left Thyroid Lobe: 7.1 x 3.3 x 3.4 cm, volume 41.7 mL. Previously 5.5 x 2.2 x 2.4 cm, volume 15.2 mL. Parenchyma: The gland echotexture is heterogeneous. Thyroid vascularity is increased. Isthmus: 0.3 cm in maximum AP dimension. Previously 0.2 cm. Estimated total number of nodules greater than or equal to 1 cm: 6 to 10. Brick Chimney Builder nodules are described as follows: 1. Location: Right mid. Size: 2.2 x 1.4 x 1.5 cm, volume 2.42 mL. Previously: 2.2 x 1.1 x 1.8 cm, volume 2.3 mL. Nodule characteristics: Composition: Solid/almost completely solid (2). Echogenicity: Hypoechoic (2). Shape: Not taller than wide (0). Margins: Smooth (0). Echogenic Foci: None (0). ACR TI-RADS total points: 4 Previous: 3 ACR TI-RADS category: 4 Previous: 3 Significant change in size (>/= 20% in 2 dimensions and minimal increase of 2 mm or 50% or greater increase in volume): No Change in features: Yes Change in ACR TI-RADS risk category: Yes 2. Location: Right inferior. Size: 1.9 x 1.6 x 1.7 cm, volume 2.59 mL. Previously: 1.5 x 1.0 x 1.1 cm, volume 0.9 mL. Nodule characteristics: Composition: Solid/almost completely solid (2). Echogenicity: Very hypoechoic (3). Shape: Not taller than wide (0). Margins: Smooth (0). Echogenic Foci: None (0). ACR TI-RADS total points: 5 Previous: 4 ACR TI-RADS category: 4 Previous: 4 Significant change in size (>/= 20% in 2 dimensions and minimal increase of 2 mm or 50% or greater increase in volume): Change in features: Change in ACR TI-RADS risk category: 3. Location: Left superior. Size: 1.8 x 1.1 x 1.5 cm, volume 1.54 mL. Previously: New since the previous study. Nodule characteristics: Composition: Solid/almost completely solid (2). Echogenicity: Isoechoic (1). Shape: Not taller than wide (0). Margins: Smooth (0). Echogenic Foci: None (0). ACR TI-RADS total points: 3 ACR TI-RADS category: 3 4. Location: Left mid lateral. Size: 3.9 x 1.4 x 2.4 cm, volume 6.97 mL. Previously: 1.7 x 1.1 x 1.4 cm, volume 1.3 mL. Nodule characteristics: Composition: Solid/almost completely solid (2). Echogenicity: Isoechoic (1). Shape: Not taller than wide (0). Margins: Smooth (0). Echogenic Foci: None (0). ACR TI-RADS total points: 3 Previous: 3 ACR TI-RADS category: 3 Previous: 3 Significant change in size (>/= 20% in 2 dimensions and minimal increase of 2 mm or 50% or greater increase in volume): Change in features: Change in ACR TI-RADS risk category: 5. Location: Left inferior. Size: 3.5 x 3.0 x 3.0 cm, volume 16.4 mL. Previously: New since the previous study. Nodule characteristics: Composition: Solid/almost completely solid (2). Echogenicity: Hypoechoic (2). Shape: Not taller than wide (0). Margins: Smooth (0). Echogenic Foci: None (0). ACR TI-RADS total points: 4 ACR TI-RADS category: 4 NODES: No lymphadenopathy is seen in the tissue surrounding the thyroid gland. US/US thyroid IMPRESSION: . ACR TI-RADS RECOMMENDATION REFERENCE: Ultrasound-guided fine-needle aspiration, follow up ultrasound, no further followup. * TR1 (0 point) and TR2 (2 points): No FNA or followup * TR3 (3 points): FNA if more than or equal to 2.5 cm in maximum dimension, follow up ultrasound in 1, 3 and 5 years if 1.5 to 2.4 cm in maximum dimension. * TR4 (4-6 points): FNA if more than or equal to 1.5 cm in maximum dimension, follow up ultrasound in 1, 2, 3 and 5 years if 1 to 1.4 cm in maximum dimension. * TR5 (more than or equal to 7 points): FNA if more than or equal to 1 cm in maximum dimension, follow up ultrasound every year for 5 years if 0.5 to 0.9 cm in maximum dimension. * TR3, TR4 or TR5 nodules that are below the size threshold for follow up receive no followup.
== END 2023-11-06 09:16 | disposition home or self-care (01) ==
LOC: HO.US 09:15
PROVIDERS: PCP Internal Medicine; Visit Provider Internal Medicine Endocrinology, Diabetes & Metabolism
DX: E04.2 Nontoxic multinodular goiter (principal)
CPT/HCPCS: 76536

== ENCOUNTER 2024-02-14 10:09 | Outpatient (AMB) | payer OTHER, SELFPAY ==
[2024-02-14 10:11] VITALS: BP 98/54; PULSE 73; BMI 30.5
--- NOTE | 2024-02-14 10:11 | MHC.OFFVIS ---
Vital Signs 02/14/24 10:11 Height 5 ft 4 in Weight 177 lb 11.081 oz BMI 30.5 BP 98/54 L Blood Pressure Location Lt brachial Position Sitting Pulse 73 Pulse Source Pulse Oximeter Intake Visit Reasons: Thyroid US results Intake Note: Patient present today for US results. Docking Pilot Required: No Accompanied by: Self / Same As Patient Allergies penicillin V Allergy (Unknown, Verified 02/14/24 10:15) hives HPI Comments Details: 58-year-old female, today for follow-up visit, for nontoxic multinodular goiter Today this visit is for fine-needle aspiration results. She had fine-needle aspiration of R mid and R lower pole nodule and right mid pole nodule on09/22/22, both nodules are consistent with benign follicular nodule, [place] category 2. She is feeling well. She is complaining of intermittent dysphagia. But now she reports that is not too much. She has to be a former patient of Dr Quevedo was last seen by him on 11/18/2016 for nontoxic multinodular goiter and decreased libido. She was getting testosterone gel by Dr. Quevedo for low libido. She has other past medical history of dyslipidemia, osteopenia, hypertension. She denies cold or heat intolerance, weigth loss or gain, diarrhea, constipation, imsomnia, fatigue, dry skin, dyspnea, dysphonia, tremors, palpitations, irritability, anxiety. Family History: She has positive family history of thyroid disease in her mother , she had vinayak thyroidectomy for unknown reason and he her sister that has hypothyroidism. Patient had fine-needle aspiration on 07/25/[address] Quevedo of right mid pole nodule , consistent with benign follicular nodule. US thyroid 02/12/2020 Right Thyroid Lobe: 5.2 x 1.7 x 2.0 cm, volume 9.2 mL. Previously 5.3 x 2.1 x 1.9 cm, volume 11.1 mL. Parenchyma: The gland echotexture is heterogeneous. Thyroid vascularity is increased. Left Thyroid Lobe: 5.0 x 1.8 x 2.7 cm, volume 12.7 mL. Previously 5.6 x 1.9 x 2.5 cm, volume 13.9 mL. Parenchyma: The gland echotexture is heterogeneous. Thyroid vascularity is increased. Isthmus: 0.2 cm in maximum AP dimension. Previously 0.2 cm. RIGHT THYROID LOBE: The 4 largest nodules are documented. It is difficult to compare nodules with prior exam. 1. Location: Upper pole/medial. Size: 0.7 x 0.4 x 0.6 cm. Previous: 0.7 x 0.5 x 0.5 cm.Nodule characteristics: Heterogeneous/complex cystic smooth margins, no calcification and minimal peripheral flow 2. Location: Mid pole. Size: 1.6 x 0.9 x 1.5 cm. Previous: 1.2 x 0.7 x 1.3 cm. Nodule characteristics: Heterogeneous, smooth margin, no calcification and positive intranodular flow 3. Location: Lower pole. Size: 1.0 x 0.5 x 0.9 cm. Previous: 1.0 x 0.6 x 0.9 cm. Nodule characteristics: Heterogeneous, smooth margin, no calcification and positive intranodular flow 4. Location: Lower pole. Size: 1.2 x 1.0 x 1.2 cm. Previous: 1.1 x 0.7 x 0.9 cm. Nodule characteristics: Heterogeneous, smooth margin, no calcification and positive intranodular flow ISTHMUS: No nodules. LEFT THYROID LOBE: The 4 largest nodules are documented. It is difficult to compare nodules with prior exam. 1. Location: Mid pole/lateral. Size: 0.9 x 1.2 x 1.0 cm. Previous: Not documented on the previous study. Nodule characteristics: Heterogeneous and complex cystic, smooth margin, no calcification and positive intranodular flow 2. Location: Mid pole/medial. Size: 1.3 x 1.1 x 1.2 cm. Previous: Not documented on the previous study. Nodule characteristics: Heterogeneous and complex cystic, smooth margin, no calcification and positive intranodular flow 3. Location: Mid pole/medial. Size: 1.5 x 1.1 x 1.3 cm. Previous: 1.3 x 1.4 x 1.1 cm. Nodule characteristics: Isoechoic, smooth margin with hypoechoic rind, no calcification and positive intranodular flow 4. Location: Lower pole. Size: 2.7 x 2.3 x 2.3 cm. Previous: 2.7 x 1.9 x 2.4 cm. Nodule characteristics: Heterogeneous, smooth margin, no calcification and positive intranodular flow NODES: No lymphadenopathy is seen in the tissue surrounding the thyroid gland. Laboratory Tests 11/06/19 11/06/19 12:18 12:18 Free T4 0.88 TSH 3rd Generation 1.05 Thyroglobulin Antibody <1 Thyroid Peroxidase Ab <1 [place] [id number] Ultrasound Report Signed with Addenda Patient: Coretta España MR#: [id number] : 1965 Acct:[id number] Age/Sex: 58 / F ADM Date: 11/06/23 Loc: HO.US Attending Dr: Pawan Bass MD Ordering Physician: Pawan Bass MD Date of Service: 11/06/23 Procedure(s): US thyroid Accession Number(s): [id number] cc: Alejandro Winkler MD; Pawan Bass MD~ ADDENDUM.Estimated total number of nodules greater than or equal to 1 cm: 6 to 10. Electronic Security Technician nodules are described as follows: 1. Location: Right mid. Size: 2.2 x 1.4 x 1.5 cm, volume 2.42 mL. Previously: 2.2 x 1.1 x 1.8 cm, volume 2.3 mL. Nodule characteristics: Composition: Solid/almost completely solid (2). Echogenicity: Hypoechoic (2). Shape: Not taller than wide (0). Margins: Smooth (0). Echogenic Foci: None (0). ACR TI-RADS total points: 4 Previous: 3 ACR TI-RADS category: 4 Previous: 3 Significant change in size (>/= 20% in 2 dimensions and minimal increase of 2 mm or 50% or greater increase in volume): No Change in features: Yes Change in ACR TI-RADS risk category: Yes 2. Location: Right inferior. Size: 1.9 x 1.6 x 1.7 cm, volume 2.59 mL. Previously: 1.5 x 1.0 x 1.1 cm, volume 0.9 mL. Nodule characteristics: Composition: Solid/almost completely solid (2). Echogenicity: Very hypoechoic (3). Shape: Not taller than wide (0). Margins: Smooth (0). Echogenic Foci: None (0). ACR TI-RADS total points: 5 Previous: 4 ACR TI-RADS category: 4 Previous: 4 Significant change in size (>/= 20% in 2 dimensions and minimal increase of 2 mm or 50% or greater increase in volume): No Change in features: Yes Change in ACR TI-RADS risk category: No 3. Location: Left superior. Size: 1.8 x 1.1 x 1.5 cm, volume 1.54 mL. Previously: New since the previous study. Nodule characteristics: Composition: Solid/almost completely solid (2). Echogenicity: Isoechoic (1). Shape: Not taller than wide (0). Margins: Smooth (0). Echogenic Foci: None (0). ACR TI-RADS total points: 3 ACR TI-RADS category: 3 4. Location: Left mid lateral. Size: 3.9 x 1.4 x 2.4 cm, volume 6.97 mL. Previously: 1.7 x 1.1 x 1.4 cm, volume 1.3 mL. Nodule characteristics: Composition: Solid/almost completely solid (2). Echogenicity: Isoechoic (1). Shape: Not taller than wide (0). Margins: Smooth (0). Echogenic Foci: None (0). ACR TI-RADS total points: 3 Previous: 3 ACR TI-RADS category: 3 Previous: 3 Significant change in size (>/= 20% in 2 dimensions and minimal increase of 2 mm or 50% or greater increase in volume): Yes Change in features: Change in ACR TI-RADS risk category: 5. Location: Left inferior. Size: 3.5 x 3.0 x 3.0 cm, volume 16.4 mL. Previously: New since the previous study. Nodule characteristics: Composition: Solid/almost completely solid (2). Echogenicity: Hypoechoic (2). Shape: Not taller than wide (0). Margins: Smooth (0). Echogenic Foci: None (0). ACR TI-RADS total points: 4 ACR TI-RADS category: 4 Please note that measurements are of limited accuracy as it was somewhat difficult to differentiate nodules are visualized borders, which also limited comparison to prior studies. IMPRESSION: 3.5 cm left lower TR 4 thyroid nodule was not previously measured and meets criteria for biopsy. Fine-needle aspiration recommended. [facility] Medical History Congestive heart failure (CHF) High cholesterol History of ovarian cyst HTN (hypertension) Non-toxic multinodular goiter Social History Alcohol intake: current Alcohol intake frequency: 3 or more drinks per day Alcohol type: hard liquor Patient Tobacco Use Status: Former Tobacco user Substance Use Type: Heroin Current occupational status: unemployed Current occupation: rt handed Physical Exam Vital Signs: Last Vital Signs Pulse 73 02/14/24 10:11 BP 98/54 L 02/14/24 10:11 BMI result Body Mass Index 30.5 Const Other: Thyroid is large in size weighs about 20 g . There are no thyroid nodules palpated but the thyroid does have a nodular feel Assessment & Plan Assessment & Plan (1) Non-toxic multinodular goiter: Code(s): E04.2 - Nontoxic multinodular goiter Category: Medical Plan: This is a 58-year-old white female with a history of multinodular goiter status post FNA of multiple nodules with benign cytology. She appears to be clinically and biochemically euthyroid. Recent ultrasound showed new left lower pole nodule warranting biopsy Plan is to send the patient to Dr. Hensley a new engine assembly supervisor in this practice with expertise in thyroid ultrasound and thyroid biopsy to evaluate with a biopsy of left lower pole nodule needs take place Coding Level of Care Code Est Pt Level 3 (03096) Diagnoses Non-toxic multinodular goiter E04.2
== END 2024-02-14 10:36 | disposition home or self-care (01) ==
PROVIDERS: PCP Internal Medicine; Visit Provider Internal Medicine Endocrinology, Diabetes & Metabolism
DX: E04.2 Nontoxic multinodular goiter (principal)
CPT/HCPCS: 99213

== ENCOUNTER → 2024-02-14 10:09 | Outpatient (BNVA) | payer OTHER, SELFPAY | PROVIDERS: PCP Internal Medicine; Visit Provider Internal Medicine Endocrinology, Diabetes & Metabolism | DX: E04.2 Nontoxic multinodular goiter (principal) | CPT/HCPCS: 99212 ==

== ENCOUNTER 2024-03-15 10:00 | Outpatient (AMB) | payer OTHER, SELFPAY ==
[2024-03-15 10:02] VITALS: BP 106/62; PULSE 82; BMI 29.9
--- NOTE | 2024-03-15 10:02 | A.OFFVIS_ITS ---
Vital Signs 03/15/24 10:02 Height 5 ft 4 in Weight 174 lb 2.643 oz BMI 29.9 BP 106/62 Blood Pressure Location Lt brachial Position Sitting Pulse 82 Pulse Source Pulse Oximeter Intake Visit Reasons: [facility]/# NOT N SERVICE Intake Note: Patient present today for [facility] office visit. Jboss Developer Required: No Accompanied by: Self / Same As Patient Allergies penicillin V Allergy (Unknown, Verified 03/15/24 10:06) hives Medication List - Last Reconciled 03/15/24 by Connie Hensley MD amlodipine 5 mg PO DAILY atenolol 25 mg PO DAILY atorvastatin 10 mg PO cholecalciferol (vitamin D3) 1,250 mcg PO QWEEK clonazepam 1 mg PO DAILY methadone 90 mg PO DAILY ondansetron 4 mg PO TID PRN 5 days HPI Comments Details: 59-year-old female, today for follow-up visit, for nontoxic multinodular goiter She has other past medical history of dyslipidemia, osteopenia, hypertension, chf. She was previously seeing Dr. Whiteside, then Dr. Bass last visit in November 1023. HPI from prior visit former patient of Dr Quevedo was last seen by him on 11/18/2016 for nontoxic multinodular goiter and decreased libido. Patient had fine-needle aspiration on 07/25/[address] Quevedo of right mid pole nodule , consistent with benign follicular nodule. September 2020, fine-needle aspiration of the right midpole nodule and a left lower pole nodule was also benign. 09/22/2022: fine-needle aspiration of R mid and R lower pole nodule and right mid pole nodule, both nodules are consistent with benign follicular nodule, [place] category 2. Ultrasound thyroid from October 2023 I reviewed the images myself and to see the bilateral thyroid nodules, the right mid lobe dominant 2.2 cm nodule that has been biopsied before in August 2022 and was benign. Also see the right lower lobe 1.9 cm nodule which has also been biopsied in August 2022 and was benign. The left superior lobe 1.8 cm nodule just solid isoechoic, TR 3 category is new from before, and not meeting criteria for FNA per TI-RADS, though per DAMIEN this is low suspicion nodule with a 5-10% risk malignancy and can be biopsied once above 1.5 cm. However we can hold off for now. She has had significant increase in the size of the left lateral mid lobe nodule now measuring 3.9 cm, solid isoechoic TR 3 category needs to be biopsied. The left lower lobe 3.5 cm solid hypoechoic TR 4 nodule also meets criteria for FNA. She had a biopsy in September 2020 of a left lower lobe nodule, however this lower lobe nodule is reported as new, unclear if it was the same 1 that was biopsied however the result was benign. Patient currently denies heat or cold intolerance, diarrhea or constipation, hair loss, palpitation, anxiety, weight changes, mood changes, low energy, changes in appearance of eyes or vision changes,, increased diaphoresis or dry skin. ? Patient denies any difficulty swallowing, pain on swallowing or voice changes. SOB due to CHF even at rest. Patient denies any history of childhood neck radiation. Denies having ever used lithium, amiodarone or biotin supplements. Family History: She has positive family history of thyroid disease in her mother , she had vinayak thyroidectomy for unknown reason and he her sister that has hypothyroidism. grandfathers sisters daughter had thyroid cancer. Review of systems Constitutional: no fevers, chills HEENT: no changes in vision Cardiac: No chest pain, discomfort or palpitations. Pulmonary: SOB has CHF GI:No abdominal pain, no nausea or vomiting, no anorexia, no blood in stool Physical exam General: sitting comfortably in no acute distress HEENT: normocephalic/atraumatic, moist oral mucosa Neck: supple, symmetrical, palpable B/L nodules 2-3 cm on left and 1-2 cm on right , n Cardiac: normal heart sounds Pulm: normal breath sounds B/L, no added breath sounds Abd: not distended, no tenderness Extremities: no edema, no signs of myxedema Neuro: AAO x3, Speech: normal, no facial droop, moving all 4 extremities [facility] Medical History Congestive heart failure (CHF) High cholesterol History of ovarian cyst HTN (hypertension) Non-toxic multinodular goiter Social History Alcohol intake: current Alcohol intake frequency: 3 or more drinks per day Alcohol type: hard liquor Patient Tobacco Use Status: Former Tobacco user Substance Use Type: Heroin Current occupational status: unemployed Current occupation: rt handed Results Reviewed Results Reviewed: Laboratory Tests 10/25/23 11:00 TSH 0.82 Free T4 0.92 US thyroid 10/2023 I reviewed the images myself and to see the bilateral thyroid nodules, the right mid lobe dominant 2.2 cm nodule that has been biopsied before in August 2022 and was benign. Also see the right lower lobe 1.9 cm nodule which has also been biopsied in August 2022 and was benign. The left superior lobe 1.8 cm nodule just solid isoechoic, TR 3 category is new from before, and not meeting criteria for FNA per TI-RADS, though per DAMIEN this is low suspicion nodule with a 5-10% risk malignancy and can be biopsied once above 1.5 cm. However we can hold off for now. She has had significant increase in the size of the left lateral mid lobe nodule now measuring 3.9 cm, solid isoechoic TR 3 category needs to be biopsied. The left lower lobe 3.5 cm solid hypoechoic TR 4 nodule also meets criteria for FNA. She had a biopsy in September 2020 of a left lower lobe nodule, however this lower lobe nodule is reported as new, unclear if it was the same 1 that was biopsied however the result was benign. ADDENDUM.Estimated total number of nodules greater than or equal to 1 cm: 6 to 10. Executive Producer nodules are described as follows: 1. Location: Right mid. Size: 2.2 x 1.4 x 1.5 cm, volume 2.42 mL. Previously: 2.2 x 1.1 x 1.8 cm, volume 2.3 mL. Nodule characteristics: Composition: Solid/almost completely solid (2). Echogenicity: Hypoechoic (2). Shape: Not taller than wide (0). Margins: Smooth (0). Echogenic Foci: None (0). ACR TI-RADS total points: 4 Previous: 3 ACR TI-RADS category: 4 Previous: 3 Significant change in size (>/= 20% in 2 dimensions and minimal increase of 2 mm or 50% or greater increase in volume): No Change in features: Yes Change in ACR TI-RADS risk category: Yes 2. Location: Right inferior. Size: 1.9 x 1.6 x 1.7 cm, volume 2.59 mL. Previously: 1.5 x 1.0 x 1.1 cm, volume 0.9 mL. Nodule characteristics: Composition: Solid/almost completely solid (2). Echogenicity: Very hypoechoic (3). Shape: Not taller than wide (0). Margins: Smooth (0). Echogenic Foci: None (0). ACR TI-RADS total points: 5 Previous: 4 ACR TI-RADS category: 4 Previous: 4 Significant change in size (>/= 20% in 2 dimensions and minimal increase of 2 mm or 50% or greater increase in volume): No Change in features: Yes Change in ACR TI-RADS risk category: No 3. Location: Left superior. Size: 1.8 x 1.1 x 1.5 cm, volume 1.54 mL. Previously: New since the previous study. Nodule characteristics: Composition: Solid/almost completely solid (2). Echogenicity: Isoechoic (1). Shape: Not taller than wide (0). Margins: Smooth (0). Echogenic Foci: None (0). ACR TI-RADS total points: 3 ACR TI-RADS category: 3 4. Location: Left mid lateral. Size: 3.9 x 1.4 x 2.4 cm, volume 6.97 mL. Previously: 1.7 x 1.1 x 1.4 cm, volume 1.3 mL. Nodule characteristics: Composition: Solid/almost completely solid (2). Echogenicity: Isoechoic (1). Shape: Not taller than wide (0). Margins: Smooth (0). Echogenic Foci: None (0). ACR TI-RADS total points: 3 Previous: 3 ACR TI-RADS category: 3 Previous: 3 Significant change in size (>/= 20% in 2 dimensions and minimal increase of 2 mm or 50% or greater increase in volume): Yes Change in features: Change in ACR TI-RADS risk category: 5. Location: Left inferior. Size: 3.5 x 3.0 x 3.0 cm, volume 16.4 mL. Previously: New since the previous study. Nodule characteristics: Composition: Solid/almost completely solid (2). Echogenicity: Hypoechoic (2). Shape: Not taller than wide (0). Margins: Smooth (0). Echogenic Foci: None (0). ACR TI-RADS total points: 4 ACR TI-RADS category: 4 Please note that measurements are of limited accuracy as it was somewhat difficult to differentiate nodules are visualized borders, which also limited comparison to prior studies. IMPRESSION: 3.5 cm left lower TR 4 thyroid nodule was not previously measured and meets criteria for biopsy. Fine-needle aspiration recommended. 3.9 cm left mid lateral TR 3 and 1.9 cm right lower TR 4 thyroid nodules appear to have increased in size, although measurements are of limited accuracy due to difficulty differentiating nodules discrete borders, limiting comparison. Correlation with prior biopsy results recommended to determine further management including possible biopsy. Assessment & Plan Assessment & Plan (1) Non-toxic multinodular goiter: Code(s): E04.2 - Nontoxic multinodular goiter Category: Medical Plan: Patient with family history of thyroid cancer in a cousin, with no personal history of head or neck radiation, who is biochemically euthyroid, coming in today for nontoxic multinodular goiter. She has had multiple FNA biopsies of her bilateral thyroid nodules. These have all been benign. Ultrasound thyroid from October 2023 I reviewed the images myself and see the bilateral thyroid nodules, the right mid lobe dominant 2.2 cm nodule that has been biopsied before in August 2022 was benign and remains stable in size. Also see the right lower lobe 1.9 cm nodule which has also been biopsied in August 2022 and was benign and remains stable in size. The left superior lobe 1.8 cm nodule is solid isoechoic, TR 3 category is new from before, and not meeting criteria for FNA per TI-RADS, though per DAMIEN this is low suspicion nodule with a 5-10% risk malignancy and can be biopsied once above 1.5 cm. However we can hold off for now and monitor this with ultrasound surveillance. She has had significant increase in the size of the left lateral mid lobe nodule now measuring 3.9 cm, previously was up to 1.7 cm in size, solid isoechoic TR 3 category needs to be biopsied. The left lower lobe 3.5 cm solid hypoechoic TR 4 nodule also meets criteria for FNA. She had a biopsy in September 2020 of a left lower lobe nodule, however unclear whether this was the same nodule now commented on as new on the ultrasound or was a different nodule. the result was benign. I explained that it is common to have thyroid nodules. About 95% of the time these nodules are benign. However if the nodule is > 1 cm in size or suspicious on ultrasound then a fine need aspiration biopsy is recommended. We discussed that a FNAB involves 4-5 passes with a small gauge needle and material obtained is sent off for cytology.If the cytopathology is benign then the nodule will be followed annually with repeat ultrasounds. However if it is suspicious or malignant, we will need to discuss further management. Indeterminate cytology can be further investigated with repeat FNA, genetic testing or empiric lobectomy. Malignant cytology is managed with either lobectomy or total thyro idectomy. We discussed briefly that thyroid cancer is, in most patients, an indolent disease that does not affect mortality. At this time I would like to biopsy her left mid lobe lateral 3.9 cm nodule which has significantly increased in size as well as the left lower lobe 3.5 cm nodule which is commented on as new and previously not seen. We will arrange for FNA at next available opening and patient will follow up with me in clinic thereafter for results and further decision making. Plan: -ordered FNA biopsy of left mid lobe lateral 3.9 cm nodule as well as the left lower lobe 3.5 cm nodule -follow up in clinic 1-2 weeks after biopsy to discuss results Plan I spent 30 minutes in reviewing the record, seeing the patient and documenting in the medical record. Orders: Orders US biopsy thyroid Today E04.2 - Nontoxic multinodular goiter Patient Instructions: We will schedule you for biopsy of the left lower and mid nodules We will also arrange for a follow up 1-2 weeks after the biopsy to discuss results Coding Level of Care Code Est Pt Level 4 (78230) Diagnoses Non-toxic multinodular goiter E04.2 Time Spent (min) 30
== END 2024-03-15 10:35 | disposition home or self-care (01) ==
PROVIDERS: PCP Internal Medicine; Visit Provider Student in an Organized Health Care Education/Training Program
DX: E04.2 Nontoxic multinodular goiter (principal)
CPT/HCPCS: 99214

== ENCOUNTER → 2024-03-15 10:00 | Outpatient (BNVA) | payer OTHER, SELFPAY | PROVIDERS: PCP Internal Medicine; Visit Provider Student in an Organized Health Care Education/Training Program | DX: E04.2 Nontoxic multinodular goiter (principal) | CPT/HCPCS: 99212 ==

== ENCOUNTER 2024-04-10 08:03 | Outpatient (REF) | payer OTHER, SELFPAY ==
--- NOTE | 2024-04-10 08:55 | PCN2_ITS ---
Brief Operative Note Date of procedure: 04/10/24 Pre-op diagnosis: left mid 3.9 cm nodule and left lower 3.5 cm thyroid nodule FNA biopsy Post-op diagnosis: same Procedure: THYROID FINE NEEDLE ASPIRATION PROCEDURE NOTE ? PROCEDURE PERFORMED: Ultrasound-guided FNA of thyroid nodule ? OPERATORS: Dr. Connie Hensley ? INDICATION: left mid 3.9 cm nodule and left lower 3.5 cm thyroid nodule FNA biopsy ; FNA performed to assess for malignancy ? DESCRIPTION OF PROCEDURE: The indications for FNA (to assess for malignancy) were reviewed with the patient in detail. Potential complications (e.g., bleeding, infection, damage to local structures, absence of clear diagnosis after FNA) were reviewed. Alternatives to FNA including conservative observation or surgery were described. The patient understood and agreed to proceed. This was documented by the signing of the written informed consent form. A time-out was performed to confirm the patient's identity and the site of planned FNA. The nodules of interest were identified using ultrasound (14 MHz linear array probe). The sites of FNA was then draped in the usual fashion and carefully cleaned and prepared using alcohol swabs. The skin and subcutaneous tissue at the previously-identified sites of needle insertion were iced and sprayed with numbing spray . For the left mid 3.9 cm nodule , Under ultrasound guidance, _4_ passes were performed using a 1.5-inch, 25-gauge needle, and sample was obtained via capi llary action. The needle tip was clearly visualized to be within the nodule at the time of sampling for 4__ of _4_ passes. For the left lower 3.5 nodule , Under ultrasound guidance, _4_ passes were p erformed using a 3.5-inch, 25 gauge needle, and sample was obtained via capillary action. The needle tip was clearly visualized to be within the nodule at the time of sampling for 3_ of _4_ passes The patient tolerated the procedure well. There were no immediate complications. A small adhesive bandage was applied, and the patient was advised to take acetaminophen (rather than NSAIDs) for any discomfort and to report any signs of inflammation/infection or marked swelling. IMPRESSION: Technically successful ultrasound-guided fine needle aspiration of left mid 3.9 cm nodule and left lower 3.5 cm thyroid nodules. PLAN: The patient was advised that I will provide follow-up regarding the cytology result and any subsequent plans. Dr. Connie Hensley Condition: stable Disposition: same day
== END 2024-04-10 08:04 | disposition home or self-care (01) ==
LOC: HO.US 08:03
PROVIDERS: PCP Internal Medicine; Visit Provider Student in an Organized Health Care Education/Training Program
DX: E04.2 Nontoxic multinodular goiter (principal)
CPT/HCPCS: 10005; 10006; 88173; 88305

== ENCOUNTER → 2024-04-10 08:03 | Outpatient (BNV) | payer OTHER, SELFPAY | PROVIDERS: PCP Internal Medicine; Visit Provider Student in an Organized Health Care Education/Training Program | DX: E04.2 Nontoxic multinodular goiter (principal) | CPT/HCPCS: 10005; 10006 ==

== ENCOUNTER 2024-05-03 10:18 | Outpatient (AMB) | payer OTHER, SELFPAY ==
--- NOTE | 2024-05-03 10:19 | A.OFFVIS_ITS ---
Vital Signs 3 05/03/24 10:21 Height 5 ft 4 in Weight 180 lb 5.41 oz BMI 31.0 BP 108/62 Blood Pressure Location Lt brachial Position Sitting Pulse 70 Pulse Source Pulse Oximeter Intake Visit Reasons: Biopsy f/u-conf Intake Note: Patient present today for biopsy results. 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 She underwent FNA biopsy of the left mid 3.9 cm and the left lower 3.5cm nodules 04/10/24, and is today to discuss results. HPI from prior visit former patient of Dr Quevdeo was last seen by him on 11/18/2016 for nontoxic multinodular goiter Patient had fine-needle aspiration on 07/25/[address] Quevedo of right mid pole nodule , consistent with benign follicular nodule. September 2020, fine-needle aspiration of the right midpole nodule and a left lower pole nodule was also benign. 09/22/2022: fine-needle aspiration of R mid and R lower pole nodule and right mid pole nodule, both nodules are consistent with benign follicular nodule, [place] category 2. Ultrasound thyroid from October 2023 I reviewed the images myself and to see the bilateral thyroid nodules, the right mid lobe dominant 2.2 cm nodule that has been biopsied before in August 2022 and was benign. Also see the right lower lobe 1.9 cm nodule which has also been biopsied in August 2022 and was benign. The left superior lobe 1.8 cm nodule just solid isoechoic, TR 3 category is new from before, and not meeting criteria for FNA per TI-RADS, though per DAMIEN this is low suspicion nodule with a 5-10% risk malignancy and can be biopsied once above 1.5 cm. However we can hold off for now. She has had significant increase in the size of the left lateral mid lobe nodule now measuring 3.9 cm, solid isoechoic TR 3 category needs to be biopsied. The left lower lobe 3.5 cm solid hypoechoic TR 4 nodule also meets criteria for FNA. She had a biopsy in September 2020 of a left lower lobe nodule, however this lower lobe nodule is reported as new, unclear if it was the same 1 that was biopsied however the result was benign. Interval history Underwent FNA biopsy of the left mid 3.9 cm nodule in the left lower 3.5 cm nodule on 04/10/2024 Left mid 3.9 cm nodule came back as AUS [place] category 3 with microfollicles, Afirma came back benign with 4% risk of malignancy. Left lower 3.5 cm nodule came back nondiagnostic [place] category 1 Patient currently denies heat or cold intolerance, diarrhea or constipation, hair loss, palpitation, anxiety, weight changes, mood changes, low energy, changes in appearance of eyes or vision changes,, increased diaphoresis or dry skin. ? Patient denies any difficulty swallowing, pain on swallowing or voice changes. SOB due to CHF even at rest. Patient denies any history of childhood neck radiation. Denies having ever used lithium, amiodarone or biotin supplements. Family History: She has positive family history of thyroid disease in her mother , she had vinayak thyroidectomy for unknown reason and he her sister that has hypothyroidism. grandfathers sisters daughter had thyroid cancer. Review of systems Constitutional: no fevers, chills HEENT: no changes in vision Cardiac: No chest pain, discomfort or palpitations. Pulmonary: SOB has CHF GI:No abdominal pain, no nausea or vomiting, no anorexia, no blood in stool Physical exam General: sitting comfortably in no acute distress HEENT: normocephalic/atraumatic, moist oral mucosa Neck: supple, symmetrical, palpable B/L nodules 2-3 cm on left and 1-2 cm on right , n Cardiac: normal heart sounds Pulm: normal breath sounds B/L, no added breath sounds Abd: not distended, no tenderness Extremities: no edema, no signs of myxedema Neuro: AAO x3, Speech: normal, no facial droop, moving all 4 extremities Laboratory Tests 10/25/23 11:00 TSH 0.82 Free T4 0.92 US thyroid 10/2023 ADDENDUM.Estimated total number of nodules greater than or equal to 1 cm: 6 to 10. [employer] nodules are described as follows: 1. Location: Right mid. Size: 2.2 x 1.4 x 1.5 cm, volume 2.42 mL. Previously: 2.2 x 1.1 x 1.8 cm, volume 2.3 mL. Nodule characteristics: Composition: Solid/almost completely solid (2). Echogenicity: Hypoechoic (2). Shape: Not taller than wide (0). Margins: Smooth (0). Echogenic Foci: None (0). ACR TI-RADS total points: 4 Previous: 3 ACR TI-RADS category: 4 Previous: 3 Significant change in size (>/= 20% in 2 dimensions and minimal increase of 2 mm or 50% or greater increase in volume): No Change in features: Yes Change in ACR TI-RADS risk category: Yes 2. Location: Right inferior. Size: 1.9 x 1.6 x 1.7 cm, volume 2.59 mL. Previously: 1.5 x 1.0 x 1.1 cm, volume 0.9 mL. Nodule characteristics: Composition: Solid/almost completely solid (2). Echogenicity: Very hypoechoic (3). Shape: Not taller than wide (0). Margins: Smooth (0). Echogenic Foci: None (0). ACR TI-RADS total points: 5 Previous: 4 ACR TI-RADS category: 4 Previous: 4 Significant change in size (>/= 20% in 2 dimensions and minimal increase of 2 mm or 50% or greater increase in volume): No Change in features: Yes Change in ACR TI-RADS risk category: No 3. Location: Left superior. Size: 1.8 x 1.1 x 1.5 cm, volume 1.54 mL. Previously: New since the previous study. Nodule characteristics: Composition: Solid/almost completely solid (2). Echogenicity: Isoechoic (1). Shape: Not taller than wide (0). Margins: Smooth (0). Echogenic Foci: None (0). ACR TI-RADS total points: 3 ACR TI-RADS category: 3 4. Location: Left mid lateral. Size: 3.9 x 1.4 x 2.4 cm, volume 6.97 mL. Previously: 1.7 x 1.1 x 1.4 cm, volume 1.3 mL. Nodule characteristics: Composition: Solid/almost completely solid (2). Echogenicity: Isoechoic (1). Shape: Not taller than wide (0). Margins: Smooth (0). Echogenic Foci: None (0). ACR TI-RADS total points: 3 Previous: 3 ACR TI-RADS category: 3 Previous: 3 Significant change in size (>/= 20% in 2 dimensions and minimal increase of 2 mm or 50% or greater increase in volume): Yes Change in features: Change in ACR TI-RADS risk category: 5. Location: Left inferior. Size: 3.5 x 3.0 x 3.0 cm, volume 16.4 mL. Previously: New since the previous study. Nodule characteristics: Composition: Solid/almost completely solid (2). Echogenicity: Hypoechoic (2). Shape: Not taller than wide (0). Margins: Smooth (0). Echogenic Foci: None (0). ACR TI-RADS total points: 4 ACR TI-RADS category: 4 Please note that measurements are of limited accuracy as it was somewhat difficult to differentiate nodules are visualized borders, which also limited comparison to prior studies. IMPRESSION: 3.5 cm left lower TR 4 thyroid nodule was not previously measured and meets criteria for biopsy. Fine-needle aspiration recommended. 3.9 cm left mid lateral TR 3 and 1.9 cm right lower TR 4 thyroid nodules appear to have increased in size, although measurements are of limited accuracy due to difficulty differentiating nodules discrete borders, limiting comparison. Correlation with prior biopsy results recommended to determine further management including possible biopsy. [facility] Medical History Congestive heart failure (CHF) High cholesterol History of ovarian cyst HTN (hypertension) Non-toxic multinodular goiter Social History Alcohol intake: current Alcohol intake frequency: 3 or more drinks per day Alcohol type: hard liquor Patient Tobacco Use Status: Former Tobacco user Substance Use Type: Heroin Current occupational status: unemployed Current occupation: rt handed Assessment & Plan Assessment & Plan (1) Non-toxic multinodular goiter: Code(s): E04.2 - Nontoxic multinodular goiter Category: Medical Plan: Patient with family history of thyroid cancer in a cousin, with no personal history of head or neck radiation, who is biochemically euthyroid, coming in today for fup nontoxic multinodular goiter. She has had multiple FNA biopsies of her bilateral thyroid nodules. These have all been benign. Ultrasound thyroid from October 2023 I reviewed the images myself and see the bilateral thyroid nodules, the right mid lobe dominant 2.2 cm nodule that has been biopsied before in August 2022 was benign and remains stable in size. Also see the right lower lobe 1.9 cm nodule which has also been biopsied in August 2022 and was benign and remains stable in size. The left superior lobe 1.8 cm nodule is solid isoechoic, TR 3 category is new from before, and not meeting criteria for FNA per TI-RADS, though per DAMIEN this is low suspicion nodule with a 5-10% risk malignancy and can be biopsied once above 1.5 cm. However we can hold off for now and monitor this with ultrasound surveillance. She has had significant increase in the size of the left lateral mid lobe nodule now measuring 3.9 cm, previously was up to 1.7 cm in size, solid isoechoic TR 3 category needs to be biopsied. The left lower lobe 3.5 cm solid hypoechoic TR 4 nodule also meets criteria for FNA. She had a biopsy in September 2020 of a left lower lobe nodule, however unclear whether this was the same nodule now commented on as new on the ultrasound or was a different nodule. the result was benign in 2020. Underwent FNA biopsy of the left mid 3.9 cm nodule in the left lower 3.5 cm nodule on 04/10/2024 Left mid 3.9 cm nodule came back as AUS [place] category 3 with microfollicles, Afirma came back benign with 4% risk of malignancy. Left lower 3.5 cm nodule came back nondiagnostic [place] category 1 I explained to the patient that nondiagnostic results still carry a 5-10% chance of malignancy and we can repeat the biopsy of the left lower 3.5 cm nodule in 3 months. Patient agreeable with plan. We will arrange for repeat FNA of the left lower 3.5 cm nodule in 3 months and patient will follow up with me in clinic thereafter for results and further decision making. Plan: -scheduled repeat FNA of the left lower 3.5 cm nodule in 3 months -follow up in clinic 1-2 weeks after biopsy to discuss results -we will also plan to repeat her thyroid ultrasound to monitor her other nodules sometime in March 2025 Plan See above Orders: Orders 2 US biopsy thyroid 07/10/24 E04.2 - Nontoxic multinodular goiter Coding Level of Care Code Est Pt Level 3 (59617) Diagnoses Non-toxic multinodular goiter E04.2
[2024-05-03 10:21] VITALS: BP 108/62; PULSE 70; BMI 31.0
== END 2024-05-03 10:41 | disposition home or self-care (01) ==
PROVIDERS: PCP Internal Medicine; Visit Provider Student in an Organized Health Care Education/Training Program
DX: E04.2 Nontoxic multinodular goiter (principal)
CPT/HCPCS: 99213

== ENCOUNTER → 2024-05-03 10:18 | Outpatient (BNVA) | payer OTHER, SELFPAY | PROVIDERS: PCP Internal Medicine; Visit Provider Student in an Organized Health Care Education/Training Program | DX: E04.2 Nontoxic multinodular goiter (principal) | CPT/HCPCS: 99212 ==

== ENCOUNTER 2025-05-16 19:00 | Outpatient (REF) | payer OTHER, SELFPAY ==
--- OUTSIDE RECORDS SUMMARY | 2025-05-16 19:04 | XMS_ITS | Data Portability ---
Author Organization [facility], [facility] Address [address] [place] [address] Assessment No assessment recorded. Plan of Treatment Reminders Order Date Submit Date Provider Last Modified By Organization Details Last Modified Time Details Appointments None record ed. Lab None record ed. Referral None record ed. Procedures None record ed. Surgeries None record ed. Imaging None record ed. Medication Orders None record ed. Patient TargetsNo targets recorded. Patient InstructionsNo instructions recorded. Reason for Referral None Reported. Results Created Date Observation Date Name Description Value Unit Range Abnormal Flag Note LastModifiedBy Organization Detail LastModifiedTime 02/24/20 24 07/18/2018 imagi ng/di agnos tic resul t No observ ation record ed. [email or web address] Not Available 01/26 07:46:12 02/24/20 24 07/05/2018 imagi ng/di agnos tic resul t No observ ation record ed. [email or web address] Not Available 01/26 07:46:13 Result Notes None recorded. Problems Name Problem SNOMED Code Status Onset Date Resolution Date Notes Provider Name and Address Organization Details Recorded Time No complaints [id number] Active Status : 'I'; Not Available [facility] 4 09:23:39 Osteoarthriti s of knee 706616703 Active 2023 Vu Hsieh PA-C [address], [place], [address] , [facility] 4 13:14:20 Problem Notes None recorded. Procedures Surgical History Date Name Laterality Status Provider Name and Address Organization Details Recorded Time 12/18/2024 Sports Knee Asp & Inj completed Vu Hsieh PA-C [address], [place], [address], [facility] 12/18/2024 06:51:17 07/01/2024 Sports Knee Asp & Inj completed Vu Hsieh PA-C [address], [place], [address], [facility] 07/01/2024 06:28:54 02/21/2024 Sports Knee Asp & Inj completed Vu Hsieh PA-C [address], [place], [address], [facility] 02/21/2024 14:21:13 11/15/2023 Sports Knee 4&1 completed Vu Hsieh PA-C [address], [place], [address], [facility] 11/15/2023 13:12:59 Imaging Results None recorded. Procedure Notes None recorded. Medical Equipment None Reported. Allergies Allergen ID Allergen Name Allergen Category Reaction Reaction Severity Criticality Documentation Date Start Date Code Code System Note Provider Name and Address Organization Details Recorded Time 53525 Product containin g penicilli n (product) medicatio n Not available Not available Not available 08/28/20232012 [id number] SNOMED Aller gyRea ction : 'Skin React ion'; Not Available [facility] 12:19:35 Medications Name Sig Start Date Stop Date Status Note LastModified by Organization Details LastModified Time multivitami n tablet TAKE 1 TABLET BY MOUTH EVERY DAY active Not Available Not Available No t Available atorvastati n 10 mg tablet active Not Available Not Available Not Available prochlorper azine maleate 5 mg tablet TAKE 1 TABLET BY MOUTH EVERY 6 HOURS NEEDED FOR NAUSEA AND VOMITING active Not Available Not Available No t Available clonazepam 0.5 mg tablet active Not Available Not Available Not Available clonazepam 1 mg tablet TAKE 1/2 TO 1 TABLET BY MOUTH TWICE DAILY NEEDED FOR ANXIETY active Not Available Not Available No t Available atenolol 25 mg tablet TAKE 1 TABLET BY MOUTH EVERY DAY active Not Available Not Available No t Available clindamycin HCl 150 mg capsule active Not Available Not Available Not Available amlodipine 5 mg tablet TAKE 1 TABLET BY MOUTH EVERY DAY active Not Available Not Available No t Available acetaminoph en 500 mg tablet TAKE 1 TABLET BY MOUTH EVERY 6 HOURS NEEDED FOR MILD PAIN FOR UP TO 10 DAYS active Not Available Not Available No t Available acetaminoph en ER 650 mg tablet,exte nded release active Not Available Not Available Not Available sodium bicarbonate 650 mg tablet TAKE 1 TABLET BY MOUTH ONCE DAILY active Not Available Not Available No t Available prochlorper azine 25 mg rectal suppository INSERT 1 SUPPOSITO R RECTALLY TWICE DAILY NEEDED FOR NAUSEA AND VOMITING active Not Available Not Available No t Available pseudoephed rine-guaife nesin ER 80-700 mg tablet,exte nded release Percocet 5-325MG Tablet 12/04 completed Statu s: 'Disc ontin ued'; Not Available Not Available Not Available ibuprofen 600 mg tablet active Not Available Not Available Not Available ondansetron 4 mg disintegrat ing tablet DISSOLVE 1 TABLET ON THE TONGUE EVERY 8 HOURS NEEDED FOR NAUSEA active Not Available Not Available No t Available oxycodone 5 mg tablet TAKE 1 TABLET BY MOUTH EVERY 6 HOURS NEEDED FOR MODERATE PAIN ON SCALE FROM 4-6 active Not Available Not Available No t Available chlorhexidi ne gluconate 0.12 % mouthwash SWISH AND SPIT 15 ML IN THE MOUTH OR THROAT IF NEEDED FOR UP TO 14 DAYS active Not Available Not Available No t Available Klonopin KlonoPIN 2MG Tablet 03/17 completed Statu s: 'Disc ontin ued'; Not Available Not Available Not Available oxycodone HCl-oxycodo ne-ASA DO NOT DRIVE WHILE TAKING THIS MEDICATIO NDX S83.211A 2016 active Statu s: 'Curr ent'; Not Available Not Available Not Available blood pressure test kit-large cuff Check blood pressure on arm as directed active Not Available Not Available No t Available Vitamin B-1 (mononitrat e) 100 mg tablet TAKE 1 TABLET BY MOUTH EVERY DAY active Not Available Not Available No t Available Vitals Date Recorded Body height Body mass index (BMI) Body weight Provider Name and Address Organization Details Last Updated DateTime 07/01/2024 160.02 cm 28.7 kg/m2 93225.96 g Vu Hsieh PA-C [address], [place], [address], [facility] 07/01/2024 08:16:17 Date Recorded Body height Body mass index (BMI) Body weight Provider Name and Address Organization Details Last Updated DateTime 11/15/2023 160.02 cm 28.7 kg/m2 12635.96 g Vu Hsieh PA-C [address], [place], [address], [facility] 11/15/2023 12:49:51 Date Recorded Body height Body mass index (BMI) Body weight Provider Name and Address Organization Details Last Updated DateTime 12/18/2024 160.02 cm 28.7 kg/m2 72186.96 g Vu Hsieh PA-C [address] [facility], [place], [address], [facility] 12/18/2024 10:50:55 Date Recorded Body height Body mass index (BMI) Body weight Provider Name and Address Organization Details Last Updated DateTime 02/21/2024 160.02 cm 28.7 kg/m2 32980.96 g Vu Hsieh PA-C [address] [facility], [place], [address], [facility] 02/21/2024 14:03:00 Social History Question Answer Notes LastModified by [employer] Details LastModified Time Tobacco Smoking Status Never Smoker Vu Hsieh PA-C [address] [facility], [place], [address], [facility] 12/18/2024 10:51:31 What Is Your Relationship Status? Single Information not available 12/18/2024 Sex: Unknown Functional Status Question Answer Note LastModified by [employer] Details LastModified Time How many times per week do you consume alcohol? 3-4 times per week Information not available 12/18/2024 Do you use any illicit or recreational drugs? No Information not available 12/18/2024 What is your level of alcohol consumption? Occasional Information not available 12/18/2024 Mental Status None recorded. Family History Nothing Reported. Medical History Condition Response Kidney/Bladder Problems Y Anemia Y Arthritis Y Heart Trouble Y Congestive Heart Failure (CHF) Y Thyroid Problems Y Hypertension Y Cholesterol Y Gynecological HistoryNo gynecological history recorded. Obstetrics History GPAL:G 0 P 0 0 0 0 Past Encounters Encounter ID Performer Location Encounter Start Date Encounter Closed Date Diagnosis/Indication Diagnosis SNOMED-CT Code Diagnosis ICD10 Code Diagnosis IMO Codes Diagnosis Note [id number] NIKKI Severino [address] [place] [address] 11/15/2023 12:26:06 11/28/2023 12:49:29 Osteoarthritis of knee 018735720 M17.9 [id number] NIKKI Severino [address] [place] [address] 02/21/2024 13:51:40 03/07/2024 15:02:52 Osteoarthritis of knee 261514588 M17.9 [id number] Vu Hsieh PA-C [facility] [address] [place] [address] 07/01/2024 08:08:53 07/16/2024 09:46:02 Osteoarthritis of knee 369799093 M17.9 [id number] NIKKI [facility] - [facility] [address] [place] [address] 12/18/2024 10:24:43 12/24/2024 10:41:18 Osteoarthritis of knee 760428340 M17.9 Health Concerns Section Related Observation LastModified by Organization Detai ls LastModified Time None Recorded Concern Status LastModified by Organization Details LastModified Time None Recorded Advance Directives Directive None Recorded Payers Insurance Date Sequence Insurance Name Policy Number Policy Ortega Covered Member ID Ortega Member ID Guarantor Name 12/24/2024 1 [facility] - DOS ON OR AFTER 2022 - ONE CARE (MEDICARE REPLACEMENT/ADV ANTAGE - HMO) Coretta España [id number] Coretta España Notes Date Note Type Note Provider Name and Address Organization Details Recorded Time 11/15/2023 text/html I am seeing the patient today under the supervision of Dr. Sargent who was available but who did not see the patient. HPI: Coretta is back today reporting increased right knee pain. She has been placed on the transplant list for her kidney she still goes to 3 times a day dialysis. PMH/PSH/MEDS/ALL/FMH /SOC HX/ ROS: All reviewed in detail per my medical intake sheet General Exam: Vitals signs as noted below, antalgic gait noted. Mental Status: Alert and oriented x3. Normal insight, affect, and grooming. 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 No spasticity or clonus noted. Extremities: Calves are soft and nontender. Skin on lower extremities is intact. Palpable pedal pulses bilaterally. Orthopedic Exam: Right knee Restricted range of motion good anterior-posterior stability no laxity valgus or varus stressing. Exquisite medial and the lateral joint line tenderness with patellofemoral crepitus noted, 1+ effusion, 4/5 strength. X-rays report: 4 views ordered and independently reviewed previously at [facility] of the right knee findings include medial compartment and patellofemoral osteoarthritis. Assessment: Right knee medial compartment osteoarthritis Plan: The patient was thoroughly counseled today regarding their knee condition, its natural history, and the treatment options both nonoperative and operative. The patient is interested in receiving an injection with corticosteroid. Reemphasized the benefits of physical therapy, stressed the importance of compliance regarding home exercises. [facility] speech recognition pipe production worker software was used to create portions of this document. An attempt at proofreading has been made to minimize errors. Please call for corrections Vu Hsieh PA-C [address] [place] [address] [address] [facility], [place], [address], [facility] 11/15/2023 13:14:40 02/21/2024 text/html I am seeing the patient today under the supervision of Dr. Sargent who was available but who did not see the patient. HPI: Coretta comes in today for evaluation of her right knee. She reports persistent pain and discomfort in the right knee which is exacerbated with weightbearing related activities. She is currently undergoing dialysis once a week she is having some increased swelling recently we have not addressed her knee pain since June of this year. PMH/PSH/MEDS/ALL/FMH /SOC HX/ ROS: All reviewed in detail per my medical intake sheet General Exam: Vitals signs as noted below, antalgic gait noted. Mental Status: Alert and oriented x3. Normal insight, affect, and grooming. 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 No spasticity or clonus noted. Extremities: Calves are soft and nontender. Skin on lower extremities is intact. Palpable pedal pulses bilaterally. Orthopedic Exam: Examination of the right knee demonstrates restricted range of motion good anterior-posterior stability no laxity valgus or varus stressing. Exquisite medial and the lateral joint line tenderness with patellofemoral crepitus noted, 1+ effusion, 4/5 strength. X-rays report: 4 views ordered and independently reviewed previously at [facility] of the right knee findings include medial compartment osteoarthritis. Assessment: Right knee medial compartment osteoarthritis Plan: The patient was thoroughly counseled today regarding their knee condition, its natural history, and the treatment options both nonoperative and operative. The patient is interested in receiving an injection with corticosteroid. Reemphasized the benefits of physical therapy, stressed the importance of compliance regarding home exercises. [facility] speech recognition pipe production worker software was used to create portions of this document. An attempt at proofreading has been made to minimize errors. Please call for corrections Vu Hsieh PA-C [address] [place] [address] [address] [facility], [place], [address], [facility] 02/21/2024 14:21:42 07/01/2024 text/html I am seeing the patient today under the supervision of Dr. Sargent who was available but who did not see the patient. HPI: Coretta comes in today for evaluation of her right knee. She reports persistent pain and discomfort in the right knee which is exacerbated with weightbearing related activities. She is currently undergoing dialysis once a week she is having some increased swelling recently we have not addressed her knee pain since June of this year. PMH/PSH/MEDS/ALL/FMH /SOC HX/ ROS: All reviewed in detail per my medical intake sheet General Exam: Vitals signs as noted below, antalgic gait noted. Mental Status: Alert and oriented x3. Normal insight, affect, and grooming. 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 No spasticity or clonus noted. Extremities: Calves are soft and nontender. Skin on lower extremities is intact. Palpable pedal pulses bilaterally. Orthopedic Exam: Examination of the right knee demonstrates restricted range of motion good anterior-posterior stability no laxity valgus or varus stressing. Exquisite medial and the lateral joint line tenderness with patellofemoral crepitus noted, 1+ effusion, 4/5 strength. X-rays report: 4 views ordered and independently reviewed previously at [facility] of the right knee findings include medial compartment osteoarthritis. Assessment: Right knee medial compartment osteoarthritis Plan: The patient was thoroughly counseled today regarding their knee condition, its natural history, and the treatment options both nonoperative and operative. The patient is interested in receiving an injection with corticosteroid. Reemphasized the benefits of physical therapy, stressed the importance of compliance regarding home exercises. [employer] speech recognition pipe production worker software was used to create portions of this document. An attempt at proofreading has been made to minimize errors. Please call for corrections Vu Hsieh PA-C [address] [place] [address] [address] [facility], [place], [address], [facility] 07/01/2024 08:32:29 12/18/2024 text/html I am seeing the patient today under the supervision of Dr. Sargent who was available but who did not see the patient. HPI: Coretta comes in today for evaluation of her right knee. She reports persistent pain and discomfort in the right knee which is exacerbated with weightbearing related activities. She is currently undergoing dialysis once a week she is having some increased swelling recently we have not addressed her knee pain since June of this year. Clinical Update: Patient returns today for follow-up evaluation reporting increased swelling. She also has been limited by recent loss of her sister within the last month. She continues to be on dialysis she has definitely noted some swelling in her extremities and comes in today for management discussion of nonsurgical management of her arthritis. PMH/PSH/MEDS/ALL/FMH /SOC HX/ ROS: All reviewed in detail per my medical intake sheet Extremities: Calves are soft and nontender. Skin on lower extremities is intact. Palpable pedal pulses bilaterally. Orthopedic Exam: Examination of the right knee demonstrates restricted range of motion good anterior-posterior stability no laxity valgus or varus stressing. Exquisite medial and the lateral joint line tenderness with patellofemoral crepitus noted, 1+ effusion, 4/5 strength. X-rays report: 4 views ordered and independently reviewed previously at [facility] of the right knee findings include medial compartment osteoarthritis. Assessment: Right knee medial compartment osteoarthritis Plan: The patient was thoroughly counseled today regarding their knee condition, its natural history, and the treatment options both nonoperative and operative. The patient is interested in receiving an injection with corticosteroid. Reemphasized the benefits of physical therapy, stressed the importance of compliance regarding home exercises. [employer] speech recognition pipe production worker software was used to create portions of this document. An attempt at proofreading has been made to minimize errors. Please call for corrections Vu Hsieh PA-C [address] [place] [address] [address], [place], [address], [facility] 12/18/2024 11:15:37 OBGyn Episode No OBEpisode recorded.
== END 2025-05-16 19:01 | disposition home or self-care (01) ==
LOC: HO.HHCLNP 19:00
PROVIDERS: Visit Provider Family Medicine
DX: Z12.4 Encounter for screening for malignant neoplasm of cervix (principal); Z11.51 Encounter for screening for human papillomavirus (HPV)
CPT/HCPCS: 87626; 88175